=== PATIENT | female | born 1975 | race Caucasian/White ===

== ENCOUNTER 2022-04-02 08:07 | Emergency (ER) | payer OTHER, SELFPAY ==
--- NOTE | ~2022-04-02 | XR_ITS ---
XR chest 2V DATE: 04/02/2022 08:38 INDICATION: Shortness of breath for one week. Cough, congestion. TECHNIQUE: 2 views COMPARISON: None FINDINGS: Normal heart size. No hilar or mediastinal enlargement. No pulmonary infiltrate or consolid ation, pleural effusion or pulmonary vascular congestion or pneumothorax. IMPRESSION: Negative Reviewed, dictated and finalized at location [facility] [employer] IMPRESSION: Negative
--- NOTE | 2022-04-02 08:11 | ED.URI ---
HPI - URI/Sore Throat General Chief Complaint: Upper Respiratory Infection Stated Complaint: LOSS OF SMELL/EYES BURNING/EARACHE/CHEST HEAVY Time Seen by Provider: 04/02/22 08:09 Source: patient Mode of arrival: ambulatory Limitations: no limitations History of Present Illness HPI Narrative: Emiliana is a 46-year-old female patient presenting to the clinic today with complaints of loss of smell, eyes burning, earache, shortness of breath, and chest heaviness x6 days. She reports no known fever or chills. States that she feels as though she is only using 20% capacity of her lungs. Was very short of breath last night and she tried sitting in steam to see if this would help alleviate her symptoms. Has a nonproductive. Tested negative for COVID at the beginning of her illness. Reports symptoms are gradually getting worse. MD elicited complaint: cough, rhinorrhea, nasal congestion and other (Eyes burning, ear pain, loss of smell, chest heaviness) Related Data Allergies Allergy/AdvReac Type Severity Reaction Status Date / Time No Known Allergies Allergy Verified 04/02/22 08:24 Review of Systems Review of Systems: Pertinent positives per HPI. Patient denies any fever, rash, headache, visual changes, dizziness, chest pain, palpitations, nausea, vomiting, diarrhea, constipation, abdominal pain, or any urinary issues. PMFSH Comments At the time of my signature, I reviewed and agree with the nursing past medical, surgical, social, and family history. There is no relevant family history pertinent to the patient complaint. Exam Narrative: General: Well-developed, well nourished, in no apparent distress Head: Normocephalic, atraumatic Eyes: Pupils equally round and reactive to light bilaterally, EOM intact, sclera and conjunctive clear, no discharge, lids normal Ears: TMs intact and clear, ear canals clear, no drainage, grossly hearing normal. Nose: Nares patent, clear nasal discharge, no inflammation, no sinus tenderness. Mouth: Oral pharynx without lesions or masses, good dentition, MMM. Neck: Supple, trachea midline, no enlargement of anterior or posterior cervical nodes, no thyroid masses or goiter palpable. Cardio: Regular rate and rhythm, s1 and s2 normal, no murmur appreciated. Resp: Clear to auscultation bilaterally, no rhonchi, rales, wheezing or rubs Course Course Emergency Course: Portions of this record may have been created with voice recognition software. Level of Care: Express [facility] Visit Vital Signs Vital signs: Vital signs reviewed MDM - URI/Sore Throat MDM Narrative Medical decision making narrative: At the time of visit patient is resting comfortably on the exam table. COVID and influenza testing was negative in the clinic today. Chest x-ray was performed and was negative in the clinic today. I suspect patient has bronchitis/upper respiratory infection. Prescription for albuterol inhaler and prednisone was sent to pharmacy and supportive measures were discussed with the patient she voiced understanding of discharge instructions and agrees to treatment plan. Differential Diagnosis Differential diagnosis: Likely upper respiratory infection, otitis media, sinusitis, viral infection, bronchitis, influenza, pharyngitis and other (COVID) Imaging Data Radiologist's impression: [facility] [address] [place] [address] XRay Report Signed Patient: Emiliana Pleitez : 1975 MR#: [id number] Age/Sex: 46 / F Acct:[id number] Loc: [facility]? ? 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 Cough, congestion.? TECHNIQUE: 2 views? COMPARISON: None? FINDINGS: Normal hear
[2022-04-02 08:20] VITALS: BP 136/98; PULSE 76; RESP 18; TEMP 36.8; O2SAT 100
[2022-04-02 08:25] VITALS: BP 136/98; PULSE 76; RESP 18; TEMP 36.8; O2SAT 100
== END 2022-04-02 09:10 | disposition home or self-care (01) ==
PROVIDERS: Emergency Provider Nurse Practitioner Family
DX: J40 Bronchitis, not specified as acute or chronic (principal); J06.9 Acute upper respiratory infection, unspecified; Z20.822 Contact with and (suspected) exposure to COVID-19
CPT/HCPCS: 71046; 87426; 87804; 99213; C9803; G0463

== ENCOUNTER 2022-06-22 10:18 | Outpatient (CLI) | payer OTHER, SELFPAY ==
[2022-06-22 15:02] LABS: Kit Draw Collected
== END 2022-06-22 10:19 | disposition home or self-care (01) ==
LOC: ANHGOSHLAB 10:20
PROVIDERS: PCP Clinical Nurse Specialist; Visit Provider Clinical Nurse Specialist
DX: D64.9 Anemia, unspecified (principal); E55.9 Vitamin D deficiency, unspecified; R21 Rash and other nonspecific skin eruption; R23.2 Flushing; Z13.220 Encounter for screening for lipoid disorders; Z13.228 Encounter for screening for other metabolic disorders; Z78.9 Other specified health status
CPT/HCPCS: 36415

== ENCOUNTER 2022-07-28 10:34 | Outpatient (CLI) | payer OTHER, SELFPAY ==
[2022-08-01 12:03] LABS: ANA Cascade Screen Negative (Negative)
== END 2022-07-28 10:35 | disposition home or self-care (01) ==
LOC: ANHGOSHLAB 10:36
PROVIDERS: PCP Clinical Nurse Specialist; Visit Provider Clinical Nurse Specialist
DX: R76.8 Other specified abnormal immunological findings in serum (principal)
CPT/HCPCS: 36415; 86038

== ENCOUNTER 2022-10-20 03:50 | Inpatient (IN) | payer OTHER, SELFPAY ==
[2022-10-20] VITALS (16 sets, daily range): BP systolic 97–143; BP diastolic 54–94; PULSE 61–81; RESP 8–19; TEMP 36.1–36.5; O2SAT 90–100; BMI 25.6
--- NOTE | ~2022-10-20 | CT_ITS ---
CT of the Abdomen and Pelvis: Indication: Small bowel obstruction Technique: 2.5 mm axial scans were obtained through the abdomen and pelvis following intravenous adm inistration of 100 cc of Omnipaque 350. Dose reduction technique was used on this scan by utilizing a utomated exposure control and iterative reconstruction technique. The dose-length product (DLP) was 4 22.18 mGy-cm. Findings: Scans through the lung bases are unremarkable. The liver, spleen, pancreas, gallbladder, adrenals and kidneys are within normal limits. No evidence of aortic aneurysm. No lymphadenopathy. There is extensive, somewhat multifocal wall thickening of the distal ileum, with mild surrounding in flammatory change. There is upstream dilatation of small bowel loops from this region, compatible wit h small bowel obstruction. Large bowel is decompressed. No abscess or free air evident. Images through the pelvis were performed. Urinary bladder unremarkable. No significant adnexal mass e vident. Small amount of abdominopelvic ascites present. Impression: Extensive, somewhat multifocal wall thickening of the distal ileum with adjacent inflammatory change, and upstream small bowel obstruction. Constellation of findings raises suspicion for Crohn's diseas e. Correlate clinically. Small amount of abdominopelvic ascites. Reviewed, dictated and finalized at location . Impression: Extensive, somewhat multifocal wall thickening of the distal ileum with adjacen t inflammatory change, and upstream small bowel obstruction. Constellation of findings raises suspicion for Crohn's disease. Correlate clinically. Small amount of abdominopelvic ascites.
[2022-10-20] MEDS: ONDANSETRON INJ 4 MG/2 ML VIAL IV PUSH ×6 (04:36→22:41)
--- NOTE | 2022-10-20 04:45 | PC.NURSE ---
Pt c/c abd pain that is generalized. pt sts that she has a hx of SBO. pt sts pain began at 23:00 on 10/19/22. pt is and has been vomiting. pt denies fever,chills. Pt sts that she is having normal bowel movements. iv established and labs sent. pt placed on monitor. pt went to restroom
[2022-10-20 04:46] LABS: Basophils Absolute Auto 0.1 K/mm3 (0.0-0.1); Basophils Percent Auto 0.5 % (0.2-1.2); Eosinophils Percent Auto 0.2 % (0-4.4); Hematocrit 43.3 % (37.0-47.0); Immature Granulocyte Absolute 0.04 K/mm3 (0.00-0.031); Immature Granulocyte Percent A 0.4 % (0-0.5); Lymphocytes Absolute Auto 1.18 K/mm3 (0.9-3.2); Lymphocytes Percent Auto 10.8 % (18.3-44.2); Mean Corpuscular HGB Conc 32.3 g/dl (32-36); Mean Corpuscular Hemoglobin 31.6 pg (26-34); Mean Corpuscular Volume 97.7 fl (80-100); Mean Platelet Volume 9.8 fl (7.4-10.4); Monocytes Absolute Auto 0.6 K/mm3 (0.1-0.6); Monocytes Percent Auto 5.9 % (2.6-8.5); Neutrophils Percent Auto 82.2 % (45.5-73.1); Platelet Count Result 391 k/mm3 (150-375); Red Blood Count 4.43 M/mm3 (4.2-5.4); Red Cell Distribution Width 12.2 % (11.5-14.5); White Blood Count 10.9 K/mm3 (4.5-10.0)
[2022-10-20 04:59] LABS: Alanine Aminotransferase 29 U/L (6-35); Albumin Level 4.9 g/dL (3.5-5.1); Alkaline Phosphatase 69 U/L (38-126); Anion Gap 10 mmol/L (8-16); Aspartate Amino Transferase 30 U/L (14-36); Bilirubin,Total 0.6 mg/dL (0.2-1.3); Blood Urea Nitrogen 9 mg/dL (7-17); Calcium 9.8 mg/dL (8.4-10.2); Carbon Dioxide 22 mmol/L (22-30); Chloride 105 mmol/L (98-107); Estimated CRCL calculation 98 ml/min; Estimated Glomerular Filt Rate > 60; Glucose 125 mg/dL (65-110); Lipase 71 U/L (23-300); Potassium 4.3 mmol/L (3.4-5.0); Sodium 137 mmol/L (137-145)
[2022-10-20 05:00] LABS: Appearance Urine Clear (Clear); Bacteria Urine Rare /hpf; Bilirubin Urine Negative (Negative); Blood Urine Negative (Negative); Color Urine Yellow (Yellow); Glucose Urine UA Negative (Negative); Ketones Urine 1+ mg/dL (Negative); Leukocyte Esterase Ur Trace LEU/UL (Negative); Nitrate Urine Negative (Negative); Non Pathogenic Casts 0-2; Protein Urine Trace mg/dL (Negative); RBC Urine 0-2 /hpf (0-2); Specific Grav Ur 1.018 (1.001-1.035); Squamous Epithelial Cell Urine None seen /hpf (Few); Urobilinogen Urine 0.2 mg/dL (<2.0); WBC Urine 0-5 /hpf; pH Urine 5.5 (5.0-9.0)
--- NOTE | 2022-10-20 05:01 | ED.ABDPAIN ---
HPI - Abdominal Pain General Chief Complaint: Abdominal Pain Stated Complaint: abdominal pain, nauseated Time Seen by Provider: 10/20/22 04:43 Source: patient and RN notes reviewed Mode of arrival: ambulatory Limitations: no limitations History of Present Illness HPI narrative: This is a 47 year old female with history of Chrohns' disease who presents for evaluation abdominal pain. She states around 11 pm she developed diffuse abdominal pain that she describes as contractions. Her pain has gradually worsened. She is having nonbilious nausea and vomiting as well. Her last bowel movement was yesterday morning. She states this pain feels similar to episodes of small bowel obstruction that she had in the past due to her Chrohns. She reports 3 years ago she was told she no longer had chrohns so she not taking any medication. She is having cold and hot flashes. She denies any previous surgeries. Related Data Home Medications Medication Instructions Recorded Confirmed metronidazole 0.75 % topical gel 1 applic topical HS 10/20/22 10/20/22 Allergies Allergy/AdvReac Type Severity Reaction Status Date / Time No Known Allergies Allergy Verified 10/20/22 03:50 Review of Systems Review of Systems: All systems reviewed & are unremarkable except as noted in HPI and below PMFSH Past Medical History Medical History Abdominal pain delivery delivered 1993, 2002 Crohn's disease Nausea Family History Family History Other Cerebrovascular accident Lung cancer Ovarian cancer Social History Social History Smoking status: Never smoker Alcohol intake: current Alcohol use details: occasionally Substance use: never Lack of Transportation: No Lack of Food: Never True Current Housing: I Have Housing Concerned About Future Housing: No Difficulty Paying Gas/Electric Bills: No Difficulty Paying for Meds: No Currently Unemployed: No Education: Master's Degree or Higher Difficulty w/ Childcare or Family Care: No Living arrangements: with family 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s: No Exam Const: General: no acute distress and alert Nutritional Appearance: well nourished Orientation/consciousness: patient oriented x3 HENMT: Head: normal to inspection Mouth: Yes Normal oral and palatal mucosa present, Yes lip normal and Yes moist mucous membranes Eyes: EOM: EOMs intact bilaterally Neck: Neck: normal visual inspection Chest: Chest palpation & inspection: normal inspection of the chest Resp: Effort & Inspection: normal respiratory effort Auscultation: clear to auscultation bilaterally Cardio: Rate: regular rate Rhythm: regular rhythm Heart sounds: no murmurs GI: GI Palp: Yes Soft to palpation, Yes Tenderness to palpation present (GI) (diffuse), No Guarding due to palpation present (GI) and No Rigid due to palpation Auscultation: Hyperactive bowel sounds present Skin: General skin exam: normal color Rashes: no rashes Wounds: no wounds Neuro: General: patient oriented x3, moves all extremities and CN's II-XI intact bilaterally Extrem: General: normal to inspection Psych: Mental Status: mental status grossly normal Affect: normal affect Attitude: cooperative Course Reevaluation(s) Reevaluation #1: PAtient absolute refuses to have NG tube placed. She is aware of diagnosis and usual treatment. She agrees to admission Date: 10/20/22 Time: 06:40 Consultations Consultation #1: I Discussed case and CT findings with DR. jessica gant. HE agrees to consult and he request surgery consult. He denies hav
[2022-10-20] MEDS: SODIUM CHLORIDE 0.9% IV 1,000 ML 999 ML IV CONT (05:05)
[2022-10-20] MEDS: HYDROmorphone HCL INJ (*CRX) 1 MG/ML SYR IV PUSH ×5 (05:05→22:41)
[2022-10-20 05:12] LABS: Add Urine Microscopic? YES
--- NOTE | 2022-10-20 06:45 | PC.NURSE ---
pt refused NGx2.
[2022-10-20] MEDS: SODIUM CHLORIDE 0.9% IV 1,000 ML 125 ML IV CONT ×3 (07:21→19:33)
--- NOTE | 2022-10-20 10:36 | PM.IMHP ---
H&P: HPI History of Present Illness Date/Time: 10/20/22 10:36 Chief Complaint: Abdominal pain Narrative: 41 old female with a past medical history of Crohn's disease and colonoscopies who present to the ER with complaints of abdominal pain that started last night around 11:00 p.m.. Pain was sharp and located in the center of the abdomen. She also had nausea but no vomiting. No hematemesis, hematochezia. No fever chills at home but she had chills in the ER. CT abdomen suggested small-bowel obstruction and Crohn's disease flare-up. Patient had a colonoscopy 3 years back and was told that her Crohn's disease has resolved. Review of Systems Review of Systems: All systems reviewed & are unremarkable except as noted in HPI and below PMFSH Past Medical History Medical History delivery delivered 1993, 2002 Crohn's disease Family History Family History Other Cerebrovascular accident Lung cancer Ovarian cancer Social History Social History Smoking status: Never smoker Alcohol intake: current Alcohol use details: occasionally Substance use: never Lack of Transportation: No Lack of Food: Never True Current Housing: I Have Housing Concerned About Future Housing: No Difficulty Paying Gas/Electric Bills: No Difficulty Paying for Meds: No Currently Unemployed: No Education: Master's Degree or Higher Difficulty w/ Childcare or Family Care: No Living arrangements: with family 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s: No Meds Home Medications and Allergies Home Medications Medication Instructions Recorded Confirmed Type metronidazole 0.75 % topical gel 1 applic topical HS 10/20/22 10/20/22 History Allergies Allergy/AdvReac Type Severity Reaction Status Date / Time No Known Allergies Allergy Verified 10/20/22 03:50 Vital Signs Vital Signs - 24 hr 10/20/22 03:54 10/20/22 04:05 10/20/22 04:06 Temperature 97.7 F Pulse Rate 81 73 69 Respiratory Rate 16 17 10 L Blood Pressure 139/90 134/87 Pulse Oximetry 99 100 100 Oxygen Delivery Room Air 10/20/22 04:07 10/20/22 04:19 10/20/22 04:30 Temperature Pulse Rate 68 78 79 Respiratory Rate 12 8 L 12 Blood Pressure 139/87 Pulse Oximetry 100 Oxygen Delivery 10/20/22 04:31 10/20/22 04:49 10/20/22 05:00 Temperature Pulse Rate 77 70 66 Respiratory Rate 16 12 17 Blood Pressure 143/94 H Pulse Oximetry 100 100 Oxygen Delivery 10/20/22 05:01 10/20/22 05:27 10/20/22 05:30 Temperature Pulse Rate 64 80 61 Respiratory Rate 14 12 Blood Pressure 128/78 Pulse Oximetry 97 90 96 Oxygen Delivery 10/20/22 07:22 10/20/22 07:50 Temperature 97.5 F L Pulse Rate 68 77 Respiratory Rate 19 18 Blood Pressure 119/80 107/77 Pulse Oximetry 96 97 Oxygen Delivery Exam Const: General: cooperative Orientation/consciousness: patient oriented x3 HENMT: Head: normal to inspection Mouth: Yes Normal oral and palatal mucosa present Eyes: General: appearance normal, both eyes and all related structures Resp: Effort & Inspection: normal respiratory effort Auscultation: clear to auscultation bilaterally Cardio: Rate: regular rate Rhythm: regular rhythm Heart sounds: S1 normal heart sound present and S2 normal heart sound present GI: GI Palp: Yes Soft to palpation Auscultation: normal bowel sounds Skin: General skin exam: normal color and no rashes or lesions noted Neuro: General: patient oriented x3, no focal motor deficits and CN's II-XI intact bilaterally Speech: normal speech Extrem: General: f
--- NOTE | 2022-10-20 14:21 | WPDGICN ---
Assessment and Plan Assessment and plan (1) Small bowel obstruction: Code(s): K56.609 - Unspecified intestinal obstruction, unspecified as to partial versus complete obstruction Status: Acute Assessment and Plan: probably Crohn's flare iv steroids for now npo surgery will see patient will need to get SBFT when she feels better (2) Acute Crohn's disease with intestinal obstruction: Code(s): K50.912 - Crohn's disease, unspecified, with intestinal obstruction Status: Acute Assessment and Plan: crohns initially diagnosed about 10 years ago, she used remicade and humira at some point but years ago last colonoscopy about 3 years ago she is currently not taking any treatment will get tb and HBV status I explained that I strongly recommend use of biologics otherwise will get more complications, she prefers SQ route- probably we could start process of treatment as outpatient for either stelara or skiryzi. (3) Abdominal pain: Code(s): R10.9 - Unspecified abdominal pain Status: Acute (4) Nausea: Code(s): R11.0 - Nausea Status: Acute GI Consult Note Consult date/time: 10/20/22 14:21 Reason for consult: Crohn's HPI: Emiliana Pleitez is a 47 year old female who originally was diagnosed with Crohn's diasease in 2013 in [place], initially she was on remicade for over a year but did not like infusions then transitioned to humira, eventually after some time she decided to discontinue medications (she says that is not a fan of using medications intermediate), she had at least 3-4 colonoscopies since with last one 3 years ago and was told that did not have any more signs of Crohn's. She has not been taking any medications and says that has been doing fairly well since. Denies abdominal surgeries, she has normal bowel habits, no weight loss. Yesterday all the sudden with severe abdominal pain and nausea, then came to ER because persistent symptom. CT scan showed extensive, somewhat multifocal wall thickening of the distal ileum with adjacent inflammatory change, and upstream small bowel obstruction.? Constellation of findings raises suspicion for Crohn's disease. NPO now, still with pain but better, she is not passing gas. Review of Systems Constitutional: Constitutional: Denies chills Eyes: Eyes: Denies blurry vision ENT: Reports Normal hearing present Cardiovascular: Cardiovascular: Denies chest pain Respiratory: Respiratory: Denies cough Gastrointestinal: Gastrointestinal: Reports abdominal pain and Reports nausea Genitourinary: Genitourinary: Denies hematuria Musculoskeletal: Musculoskeletal: Denies arthralgias Integumentary/Breasts: Skin/Breast: Denies rash Neurologic: Denies confusion Psychiatric: Psychiatric: Denies behavioral changes [facility] Past Medical History Medical History (Updated 10/20/22 @ 14:25 by Aftab Soto MD) Abdominal pain delivery delivered 1993, 2002 Crohn's disease Nausea Family History Family History Other Cerebrovascular accident Lung cancer Ovarian cancer Social History Social History Smoking status: Never smoker Alcohol intake: current Alcohol use details: occasionally Substance use: never Lack of Transportation: No Lack of Food: Never True Current Housing: I Have Housing Concerned About Future Housing: No Difficulty Paying Gas/Electric Bills: No Difficulty Paying for Meds: No Currently Unemployed: No Education: Master's Degree or Higher Difficulty w/ Childcare or Family Care: No Living arrangements: with family 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
--- NOTE | 2022-10-20 15:54 | PM.CNGS ---
Assessment and Plan Assessment and plan (1) Small bowel obstruction: Code(s): K56.609 - Unspecified intestinal obstruction, unspecified as to partial versus complete obstruction Status: Acute Assessment and Plan: Likely secondary to Crohn's flare, management per Gastroenterology, continue serial exams for now, no acute surgical indications at this time, clear liquid diet History of Present Illness Consult details Consult date: 10/20/22 Reason for consult: abdominal pain Requesting physician: Osei Tineo MD Narrative: The patient is a 47-year-old female presenting to the emergency depart complaining of severe abdominal pain. The patient reports the pain was diffuse and crampy in nature. The patient reports associated nausea and vomiting. The patient has a history of Crohn's disease diagnosed in 2012 for which she was on medications. After a few years she reports her symptoms resolved and she stop the medications. The patient reports that she has had colonoscopy since that time and has had no signs or symptoms of residual disease. Review of Systems Review of Systems: All systems reviewed & are unremarkable except as noted in HPI and below PMFSH Past Medical History Medical History Abdominal pain delivery delivered 1993, 2002 Crohn's disease Nausea Family History Family History Other Cerebrovascular accident Lung cancer Ovarian cancer Social History Social History Smoking status: Never smoker Alcohol intake: current Alcohol use details: occasionally Substance use: never Lack of Transportation: No Lack of Food: Never True Current Housing: I Have Housing Concerned About Future Housing: No Difficulty Paying Gas/Electric Bills: No Difficulty Paying for Meds: No Currently Unemployed: No Education: Master's Degree or Higher Difficulty w/ Childcare or Family Care: No Living arrangements: with family 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s: No Meds Home Medications and Allergies Home Medications Medication Instructions Recorded Confirmed Type metronidazole 0.75 % topical gel 1 applic topical HS 10/20/22 10/20/22 History Allergies Allergy/AdvReac Type Severity Reaction Status Date / Time No Known Allergies Allergy Verified 10/20/22 03:50 Vital Signs Vital Signs - 24 hr 10/20/22 03:54 10/20/22 04:05 10/20/22 04:06 Temperature 36.5 C Pulse Rate 81 73 69 Respiratory Rate 16 17 10 L Blood Pressure 139/90 134/87 Pulse Oximetry 99 100 100 Oxygen Delivery Room Air 10/20/22 04:07 10/20/22 04:19 10/20/22 04:30 Temperature Pulse Rate 68 78 79 Respiratory Rate 12 8 L 12 Blood Pressure 139/87 Pulse Oximetry 100 Oxygen Delivery 10/20/22 04:31 10/20/22 04:49 10/20/22 05:00 Temperature Pulse Rate 77 70 66 Respiratory Rate 16 12 17 Blood Pressure 143/94 H Pulse Oximetry 100 100 Oxygen Delivery 10/20/22 05:01 10/20/22 05:27 10/20/22 05:30 Temperature Pulse Rate 64 80 61 Respiratory Rate 14 12 Blood Pressure 128/78 Pulse Oximetry 97 90 96 Oxygen Delivery 10/20/22 07:22 10/20/22 07:50 10/20/22 14:00 Temperature 36.4 C L 36.4 C L Pulse Rate 68 77 61 Respiratory Rate 19 18 16 Blood Pressure 119/80 107/77 97/54 L Pulse Oximetry 96 97 97 Oxygen Delivery Exam Const: General: cooperative, comfortable, no acute distress and average body habitus HENMT: Head: normal to inspection, normocephalic and atraumatic Eyes: General: appearance normal, both eyes and all related structures Neck: Neck: normal visu
[2022-10-20] MEDS: methylPREDNISolone SOD SUCC 40 MG VIAL IV PUSH (20:38)
[2022-10-21] MEDS: SODIUM CHLORIDE 0.9% IV 1,000 ML 125 ML IV CONT ×3 (03:23→20:43)
[2022-10-21 03:31] VITALS: BP 103/67; PULSE 60; RESP 18; TEMP 36; O2SAT 99
[2022-10-21 05:34] LABS: Basophils Percent Auto 0.2 % (0.2-1.2); Hematocrit 35.1 % (37.0-47.0); Hemoglobin 11.4 g/dL (12.0-15.0); Immature Granulocyte Absolute 0.02 K/mm3 (0.00-0.031); Immature Granulocyte Percent A 0.3 % (0-0.5); Lymphocytes Absolute Auto 0.87 K/mm3 (0.9-3.2); Mean Corpuscular HGB Conc 32.5 g/dl (32-36); Mean Corpuscular Hemoglobin 31.7 pg (26-34); Mean Corpuscular Volume 97.5 fl (80-100); Mean Platelet Volume 9.8 fl (7.4-10.4); Monocytes Absolute Auto 0.2 K/mm3 (0.1-0.6); Monocytes Percent Auto 4.1 % (2.6-8.5); Neutrophils Absolute Auto 4.7 K/mm3 (1.3-6.7); Neutrophils Percent Auto 80.4 % (45.5-73.1); Platelet Count Result 299 k/mm3 (150-375); White Blood Count 5.8 K/mm3 (4.5-10.0)
[2022-10-21] MEDS: methylPREDNISolone SOD SUCC 40 MG VIAL IV PUSH ×3 (05:43→20:48)
[2022-10-21 05:44] LABS: Alanine Aminotransferase 18 U/L (6-35); Albumin Level 3.2 g/dL (3.5-5.1); Alkaline Phosphatase 45 U/L (38-126); Anion Gap 5 mmol/L (8-16); Aspartate Amino Transferase 21 U/L (14-36); Bilirubin,Total 0.5 mg/dL (0.2-1.3); Blood Urea Nitrogen 6 mg/dL (7-17); CRP 5.3 mg/dL (<1.0); Calcium 7.8 mg/dL (8.4-10.2); Carbon Dioxide 22 mmol/L (22-30); Chloride 107 mmol/L (98-107); Estimated CRCL calculation 98 ml/min; Estimated Glomerular Filt Rate > 60; Glucose 122 mg/dL (65-110); Sodium 134 mmol/L (137-145)
[2022-10-21] MEDS: HYDROmorphone HCL INJ (*CRX) 1 MG/ML SYR IV PUSH ×4 (05:47→22:06)
[2022-10-21 06:13] LABS: Hepatitis B Surface Antigen Negative (Negative)
[2022-10-21 06:32] LABS: Erythrocyte Sedimentation Rate 21 mm/hr (0-20)
[2022-10-21 06:39] LABS: Hepatitis B Surface Anti Res Positive
[2022-10-21 08:00] VITALS: PULSE 60; RESP 18; O2SAT 99
--- NOTE | 2022-10-21 10:56 | PM.IMPN ---
Progress Note: A&P Assessment and Plan (1) Small bowel obstruction: Code(s): K56.609 - Unspecified intestinal obstruction, unspecified as to partial versus complete obstruction Status: Acute Assessment and Plan: Small-bowel obstruction etiology is unclear. keep the patient NPO. General surgery has been consulted. Continue IV fluids. Continue pain meds (2) Acute Crohn's disease with intestinal obstruction: Code(s): K50.912 - Crohn's disease, unspecified, with intestinal obstruction Status: Acute Assessment and Plan: Continue high-dose IV Solu-Medrol q.8 hours for Crohn's flare up. Continue IV pain medication. Continue symptomatic treatment. GI consulted. Keep NPO Plan Code full DVT prophylaxis-PAS boots/ambulation Subjective Date/time seen: 10/21/22 10:56 Interval history: Patient was started on clear liquid diet by General surgery but she is not tolerating. Recommended her to remain NPO Review of Systems Review of Systems: All systems reviewed & are unremarkable except as noted in HPI and below Exam Const: General: cooperative Orientation/consciousness: patient oriented x3 HENMT: Head: normal to inspection Mouth: Yes Normal oral and palatal mucosa present Eyes: General: appearance normal, both eyes and all related structures Resp: Effort & Inspection: normal respiratory effort Auscultation: clear to auscultation bilaterally Cardio: Rate: regular rate Rhythm: regular rhythm Heart sounds: S1 normal heart sound present and S2 normal heart sound present GI: GI Palp: Yes Soft to palpation Auscultation: normal bowel sounds Skin: General skin exam: normal color and no rashes or lesions noted Neuro: General: patient oriented x3, no focal motor deficits and CN's II-XI intact bilaterally Speech: normal speech Extrem: General: full ROM Psych: Appearance: grossly normal Objective Data Vital Signs Vital Signs: Vital Signs - 24 hr 10/20/22 14:00 10/20/22 20:10 10/21/22 03:31 Temperature 97.5 F L 96.9 F L 96.8 F L Pulse Rate 61 61 60 Respiratory Rate 16 18 18 Blood Pressure 97/54 L 102/64 103/67 Pulse Oximetry 97 99 99 Oxygen Delivery 10/21/22 08:00 Temperature Pulse Rate 60 Respiratory Rate 18 Blood Pressure Pulse Oximetry 99 Oxygen Delivery Room Air Intake/Output Intake/Output: Intake & Output 0810/19/22 10/20/22 10/21/22 23:59 23:59 23:59 23:59 Intake Total 3550 / 3550 1410 / 1410 Balance 3550 / 3550 1410 / 1410 Meds/Results Medications: Active Medications Generic Name Dose Route Start Last Admin Trade Name Freq PRN Reason Stop Dose Admin Hydromorphone HCl 1 mg 10/20/22 06:36 10/21/22 05:47 Hydromorphone Hcl Inj (*Crx) 1 Mg/Ml Syr IV PUSH 1 mg Q4H PRN Administration Pain Rated 7-10 Sodium Chloride 1,000 mls @ 125 mls/hr 10/20/22 06:40 10/21/22 03:23 Normal Saline Iv IV CONT 125 mls/hr .Q8H ANJU Administration Methylprednisolone Sodium Succinate 40 mg 10/20/22 22:00 10/21/22 05:43 Methylprednisolone Sod Succ 40 Mg Vial IV PUSH 40 mg Q8HR ANJU Administration Ondansetron HCl 4 mg 10/20/22 06:36 10/20/22 22:41 Ondansetron Inj 4 Mg/2 Ml Vial IV PUSH 4 mg Q4H PRN Administration Nausea Radiology Results: ITS Impressions Abdomen/Pelvis CT 10/20/22 06:05 Impression: Extensive, somewhat multifocal wall thickening of the distal ileum with adjacent inflammatory change, and upstream small bowel obstruction. Constellation of findings raises suspicion for Crohn's disease. Correlate clinically. Small amount of abdominopelvic ascites. Labs Labs: Laboratory Results - last 24 hr 10/21/22 05:01 WBC 5.8 RBC 3.60 L Hgb 11.4 L Hct 35.1 L MCV 97.5 MCH 31.7 MCHC 32.5 RDW 12.0 Plt Count 299 MPV 9.8 Immature Gran % (Auto) 0.3 Neut % (Auto) 80.4 H Lymph % (Auto) 15.0 L [place] % (Auto) 4.1 Eos % (Auto) 0.0 Baso % (Auto) 0.2 Ly
--- NOTE | 2022-10-21 13:21 | PM.PNGS ---
Progress Note: A&P Assessment and Plan (1) Acute Crohn's disease with intestinal obstruction: Code(s): K50.912 - Crohn's disease, unspecified, with intestinal obstruction Status: Acute Assessment and Plan: exam largely benign, nancie clears, would slowly ADAT, cont IV steroids Subjective Subjective Date/Time Seen: 10/21/22 13:21 Interval history: still c intermittent crampy abd pain, nancie clears Review of Systems Review of Systems: All systems reviewed & are unremarkable except as noted in HPI and below Exam Const: General: cooperative, comfortable and no acute distress Resp: Auscultation: clear to auscultation bilaterally Cardio: Rate: regular rate Rhythm: regular rhythm GI: Inspection: normal to inspection and non-distended GI Palp: Yes abdominal tenderness, Yes Soft to palpation, Yes Tenderness to palpation present (GI), No Guarding due to palpation present (GI) and No Rigid due to palpation Objective Data Vital Signs Vital Signs: Vital Signs - 24 hr 10/20/22 14:00 10/20/22 20:10 10/21/22 03:31 Temperature 36.4 C L 36.1 C L 36.0 C L Pulse Rate 61 61 60 Respiratory Rate 16 18 18 Blood Pressure 97/54 L 102/64 103/67 Pulse Oximetry 97 99 99 Oxygen Delivery 10/21/22 08:00 Temperature Pulse Rate 60 Respiratory Rate 18 Blood Pressure Pulse Oximetry 99 Oxygen Delivery Room Air Intake/Output Intake/Output: Intake & Output 10/18/22 10/19/22 10/20/22 10/21/22 23:59 23:59 23:59 23:59 Intake Total 3550 2410 Balance 3550 2410 Meds/Results Medications: Active Medications Generic Name Dose Route Start Last Admin Trade Name Freq PRN Reason Stop Dose Admin Hydromorphone HCl 1 mg 10/20/22 06:36 10/21/22 10:57 Hydromorphone Hcl Inj (*Crx) 1 Mg/Ml Syr IV PUSH 1 mg Q4H PRN Administration Pain Rated 7-10 Sodium Chloride 1,000 mls @ 125 mls/hr 10/20/22 06:40 10/21/22 11:42 Normal Saline Iv IV CONT 125 mls/hr .Q8H ANJU Administration Methylprednisolone Sodium Succinate 40 mg 10/20/22 22:00 10/21/22 05:43 Methylprednisolone Sod Succ 40 Mg Vial IV PUSH 40 mg Q8HR ANJU Administration Ondansetron HCl 4 mg 10/20/22 06:36 10/20/22 22:41 Ondansetron Inj 4 Mg/2 Ml Vial IV PUSH 4 mg Q4H PRN Administration Nausea Radiology Results: ITS Impressions Abdomen/Pelvis CT 10/20/22 06:05 Impression: Extensive, somewhat multifocal wall thickening of the distal ileum with adjacent inflammatory change, and upstream small bowel obstruction. Constellation of findings raises suspicion for Crohn's disease. Correlate clinically. Small amount of abdominopelvic ascites. Labs Labs: Laboratory Results - last 24 hr 10/21/22 05:01 WBC 5.8 RBC 3.60 L Hgb 11.4 L Hct 35.1 L MCV 97.5 MCH 31.7 MCHC 32.5 RDW 12.0 Plt Count 299 MPV 9.8 Immature Gran % (Auto) 0.3 Neut % (Auto) 80.4 H Lymph % (Auto) 15.0 L [place] % (Auto) 4.1 Eos % (Auto) 0.0 Baso % (Auto) 0.2 Lymph # (Auto) 0.87 L [place] # (Auto) 0.2 Eos # (Auto) 0.0 Baso # (Auto) 0.0 Abs Immat Gran (auto) 0.02 Absolute Neuts (auto) 4.7 Absolute Nucleated RBC 0.0 Nucleated RBC % 0.0 ESR 21 H Sodium 134 L Potassium 4.0 Chloride 107 Carbon Dioxide 22 Anion Gap 5 L BUN 6 L Creatinine 0.60 L Estim Creat Clear Calc 98 Estimated GFR > 60 Glucose 122 H Calcium 7.8 L Total Bilirubin 0.5 AST 21 ALT 18 Alkaline Phosphatase 45 C-Reactive Protein 5.3 H Total Protein 6.0 L Albumin 3.2 L Hep Bs Antigen Negative Hep Bs Antibody Positive
--- NOTE | 2022-10-21 13:22 | WPDGIPROGNO ---
Progress Note: A&P Assessment and Plan (1) Small bowel obstruction: Code(s): K56.609 - Unspecified intestinal obstruction, unspecified as to partial versus complete obstruction Status: Acute Assessment and Plan: still with abdominal pain liquid diet only if she can tolerate evaluated by surgery (2) Acute Crohn's disease with intestinal obstruction: Code(s): K50.912 - Crohn's disease, unspecified, with intestinal obstruction Status: Acute Assessment and Plan: noted elevated inflammatory markers iv steroids for now TB and HBV pending will need biologics for which needs to follow-up in office ([facility] or [facility]- prefers sq route), she used years ago remicade and humira (3) Abdominal pain: Code(s): R10.9 - Unspecified abdominal pain Status: Acute Assessment and Plan: monitor Subjective Date/time seen: 10/21/22 13:22 Interval history: still with abdominal discomfort, she has not had BM yet Review of Systems Review of Systems: All systems reviewed & are unremarkable except as noted in HPI and below Exam Const: General: cooperative, comfortable, no acute distress and average body habitus HENMT: Head: normal to inspection, normocephalic and atraumatic Eyes: General: appearance normal, both eyes and all related structures Neck: Neck: normal visual inspection, full ROM and no lymphadenopathy Resp: Effort & Inspection: normal respiratory effort Auscultation: clear to auscultation bilaterally Cardio: Rate: regular rate Rhythm: regular rhythm GI: Inspection: normal to inspection and distended GI Palp: Yes abdominal tenderness, Yes Soft to palpation, Yes Tenderness to palpation present (GI) and No Guarding due to palpation present (GI) Skin: General skin exam: normal color and no rashes or lesions noted Neuro: General: patient oriented x3 and CN's II-XI intact bilaterally Extrem: General: normal to inspection and full ROM Psych: Appearance: grossly normal Objective Data Vital Signs Vital Signs: Vital Signs - 24 hr 10/20/22 14:00 10/20/22 20:10 10/21/22 03:31 Temperature 97.5 F L 96.9 F L 96.8 F L Pulse Rate 61 61 60 Respiratory Rate 16 18 18 Blood Pressure 97/54 L 102/64 103/67 Pulse Oximetry 97 99 99 Oxygen Delivery 10/21/22 08:00 Temperature Pulse Rate 60 Respiratory Rate 18 Blood Pressure Pulse Oximetry 99 Oxygen Delivery Room Air Intake/Output Intake/Output: Intake & Output 10/18/22 10/19/22 10/20/22 10/21/22 23:59 23:59 23:59 23:59 Intake Total 3550 2410 Balance 3550 2410 Meds/Results Medications: Active Medications Generic Name Dose Route Start Last Admin Trade Name Freq PRN Reason Stop Dose Admin Hydromorphone HCl 1 mg 10/20/22 06:36 10/21/22 10:57 Hydromorphone Hcl Inj (*Crx) 1 Mg/Ml Syr IV PUSH 1 mg Q4H PRN Administration Pain Rated 7-10 Sodium Chloride 1,000 mls @ 125 mls/hr 10/20/22 06:40 10/21/22 11:42 Normal Saline Iv IV CONT 125 mls/hr .Q8H ANJU Administration Methylprednisolone Sodium Succinate 40 mg 10/20/22 22:00 10/21/22 05:43 Methylprednisolone Sod Succ 40 Mg Vial IV PUSH 40 mg Q8HR ANJU Administration Ondansetron HCl 4 mg 10/20/22 06:36 10/20/22 22:41 Ondansetron Inj 4 Mg/2 Ml Vial IV PUSH 4 mg Q4H PRN Administration Nausea Radiology Results: ITS Impressions Abdomen/Pelvis CT 10/20/22 06:05 Impression: Extensive, somewhat multifocal wall thickening of the distal ileum with adjacent inflammatory change, and upstream small bowel obstruction. Constellation of findings raises suspicion for Crohn's disease. Correlate clinically. Small amount of abdominopelvic ascites. Labs Labs: Laboratory Results - last 24 hr 10/21/22 05:01 WBC 5.8 RBC 3.60 L Hgb 11.4 L Hct 35.1 L MCV 97.5 MCH 31.7 MCHC 32.5 RDW 12.0 Plt Count 299 MPV 9.8 Immature Gran % (Auto) 0.3 Neut % (Auto) 80.4 H Lymph % (Aut
[2022-10-21 14:00] VITALS: BP 104/58; PULSE 67; RESP 16; TEMP 36.6; O2SAT 100
[2022-10-21 19:48] VITALS: BP 112/66; PULSE 63; RESP 14; TEMP 36.7; O2SAT 100
[2022-10-22] MEDS: SODIUM CHLORIDE 0.9% IV 1,000 ML 125 ML IV CONT ×3 (04:43→20:43)
[2022-10-22] MEDS: methylPREDNISolone SOD SUCC 40 MG VIAL IV PUSH ×3 (05:58→20:44)
[2022-10-22] MEDS: HYDROmorphone HCL INJ (*CRX) 1 MG/ML SYR IV PUSH ×4 (05:58→20:44)
[2022-10-22 06:04] VITALS: BP 113/68; PULSE 61; RESP 14; TEMP 36.6; O2SAT 98
--- NOTE | 2022-10-22 08:07 | PM.IMPN ---
Progress Note: A&P Assessment and Plan (1) Small bowel obstruction: Code(s): K56.609 - Unspecified intestinal obstruction, unspecified as to partial versus complete obstruction Status: Acute Assessment and Plan: Stable, improving, ADAT, appreciate general surgery consultation (2) Acute Crohn's disease with intestinal obstruction: Code(s): K50.912 - Crohn's disease, unspecified, with intestinal obstruction Status: Acute Assessment and Plan: Continue steroids, ADAT, improving, appreciate GI consultation, evaluate for biologics at discharge Plan DVT prophylaxis with lovenox GI prophylaxis not indicated Code status full code Subjective Date/time seen: 10/22/22 08:07 Interval history: 47-year-old female history of Crohn's disease presenting with abdominal pain and currently being treated for small-bowel obstruction and Crohn's flare. No overnight events noted. No chest pain or shortness of breath. No nausea, vomiting or diarrhea. No fevers or chills. Still with some abdominal TTP, no BM, no flatus. Doing ok with liquid diet. Review of Systems Review of Systems: 12 point review of systems was assessed and was negative except as noted in the HPI Exam Narrative: General: No acute distress, alert and oriented per baseline HEENT: Atraumatic, normocephalic, mucous membranes moist CV: Regular rate and rhythm, S1, S2 Lungs: Clear to auscultation bilaterally, no rales or crackles noted, no wheezes, good air entry Abdomen: Soft, nontender, nondistended, TTP, hypoactive BS, present Extremities: Normal to inspection Skin: No rashes noted, no lesions or wounds seen Psych: Euthymic, normal affect Objective Data Vital Signs Vital Signs: Vital Signs - 24 hr 10/21/22 14:00 10/21/22 19:48 10/22/22 06:04 Temperature 97.9 F 98.1 F 97.8 F Pulse Rate 67 63 61 Respiratory Rate 16 14 14 Blood Pressure 104/58 L 112/66 113/68 Pulse Oximetry 100 100 98 Intake/Output Intake/Output: Intake & Output 10/19/22 10/20/22 10/21/22 10/22/22 23:59 23:59 23:59 23:59 Intake Total 3550 4360 1450 Balance 3550 4360 1450 Meds/Results Medications: Active Medications Generic Name Dose Route Start Last Admin Trade Name Freq PRN Reason Stop Dose Admin Hydromorphone HCl 1 mg 10/20/22 06:36 10/22/22 05:58 Hydromorphone Hcl Inj (*Crx) 1 Mg/Ml Syr IV PUSH 1 mg Q4H PRN Administration Pain Rated 7-10 Sodium Chloride 1,000 mls @ 125 mls/hr 10/20/22 06:40 10/22/22 04:43 Normal Saline Iv IV CONT 125 mls/hr .Q8H ANJU Administration Methylprednisolone Sodium Succinate 40 mg 10/20/22 22:00 10/22/22 05:58 Methylprednisolone Sod Succ 40 Mg Vial IV PUSH 40 mg Q8HR ANJU Administration Ondansetron HCl 4 mg 10/20/22 06:36 10/20/22 22:41 Ondansetron Inj 4 Mg/2 Ml Vial IV PUSH 4 mg Q4H PRN Administration Nausea Radiology Results: ITS Impressions Abdomen/Pelvis CT 10/20/22 06:05 Impression: Extensive, somewhat multifocal wall thickening of the distal ileum with adjacent inflammatory change, and upstream small bowel obstruction. Constellation of findings raises suspicion for Crohn's disease. Correlate clinically. Small amount of abdominopelvic ascites.
[2022-10-22 09:35] LABS: Alanine Aminotransferase 17 U/L (6-35); Albumin Level 3.6 g/dL (3.5-5.1); Alkaline Phosphatase 46 U/L (38-126); Anion Gap 5 mmol/L (8-16); Aspartate Amino Transferase 27 U/L (14-36); Bilirubin,Total 0.5 mg/dL (0.2-1.3); Blood Urea Nitrogen 6 mg/dL (7-17); Calcium 8.6 mg/dL (8.4-10.2); Carbon Dioxide 24 mmol/L (22-30); Chloride 105 mmol/L (98-107); Estimated CRCL calculation 116 ml/min; Estimated Glomerular Filt Rate > 60; Glucose 112 mg/dL (65-110); Potassium 4.1 mmol/L (3.4-5.0); Sodium 134 mmol/L (137-145)
[2022-10-22 09:49] LABS: Basophils Percent Auto 0.1 % (0.2-1.2); Hematocrit 35.2 % (37.0-47.0); Hemoglobin 11.4 g/dL (12.0-15.0); Immature Granulocyte Absolute 0.04 K/mm3 (0.00-0.031); Immature Granulocyte Percent A 0.5 % (0-0.5); Lymphocytes Absolute Auto 1.15 K/mm3 (0.9-3.2); Lymphocytes Percent Auto 15.5 % (18.3-44.2); Mean Corpuscular HGB Conc 32.4 g/dl (32-36); Mean Corpuscular Hemoglobin 31.8 pg (26-34); Mean Corpuscular Volume 98.1 fl (80-100); Monocytes Absolute Auto 0.4 K/mm3 (0.1-0.6); Monocytes Percent Auto 5.1 % (2.6-8.5); Neutrophils Absolute Auto 5.9 K/mm3 (1.3-6.7); Neutrophils Percent Auto 78.8 % (45.5-73.1); Platelet Count Result 327 k/mm3 (150-375); Red Blood Count 3.59 M/mm3 (4.2-5.4); Red Cell Distribution Width 12.1 % (11.5-14.5); White Blood Count 7.4 K/mm3 (4.5-10.0)
[2022-10-22] MEDS: ENOXAPARIN 40 MG/0.4 ML SYRINGE SUB-Q (10:27)
--- NOTE | 2022-10-22 12:37 | PM.PNGS ---
Progress Note: A&P Assessment and Plan (1) Acute Crohn's disease with intestinal obstruction: Code(s): K50.912 - Crohn's disease, unspecified, with intestinal obstruction Status: Acute Assessment and Plan: improving, cont IV steroids, exam largely benign, will ADAT Subjective Subjective Date/Time Seen: 10/22/22 12:37 Interval history: feels better, less cramping, +flatus, nancie clears Review of Systems Review of Systems: All systems reviewed & are unremarkable except as noted in HPI and below Exam Const: General: cooperative, comfortable and no acute distress Resp: Auscultation: clear to auscultation bilaterally Cardio: Rate: regular rate Rhythm: regular rhythm GI: Inspection: normal to inspection and distended GI Palp: Yes abdominal tenderness, Yes Soft to palpation, Yes Tenderness to palpation present (GI), No Guarding due to palpation present (GI) and No Rigid due to palpation Objective Data Vital Signs Vital Signs: Vital Signs - 24 hr 10/21/22 14:00 10/21/22 19:48 10/22/22 06:04 Temperature 36.6 C 36.7 C 36.6 C Pulse Rate 67 63 61 Respiratory Rate 16 14 14 Blood Pressure 104/58 L 112/66 113/68 Pulse Oximetry 100 100 98 Intake/Output Intake/Output: Intake & Output 10/19/22 10/20/22 10/21/22 10/22/22 23:59 23:59 23:59 23:59 Intake Total 3550 4360 1670 Balance 3550 4360 1670 Meds/Results Medications: Active Medications Generic Name Dose Route Start Last Admin Trade Name Freq PRN Reason Stop Dose Admin Enoxaparin Sodium 40 mg 10/22/22 10:20 10/22/22 10:27 Enoxaparin 40 Mg/0.4 Ml Syringe SUB-Q 40 mg DAILY ANJU Administration Hydromorphone HCl 1 mg 10/20/22 06:36 10/22/22 10:27 Hydromorphone Hcl Inj (*Crx) 1 Mg/Ml Syr IV PUSH 1 mg Q4H PRN Administration Pain Rated 7-10 Sodium Chloride 1,000 mls @ 125 mls/hr 10/20/22 06:40 10/22/22 04:43 Normal Saline Iv IV CONT 125 mls/hr .Q8H ANJU Administration Methylprednisolone Sodium Succinate 40 mg 10/20/22 22:00 10/22/22 05:58 Methylprednisolone Sod Succ 40 Mg Vial IV PUSH 40 mg Q8HR ANJU Administration Ondansetron HCl 4 mg 10/20/22 06:36 10/20/22 22:41 Ondansetron Inj 4 Mg/2 Ml Vial IV PUSH 4 mg Q4H PRN Administration Nausea Radiology Results: ITS Impressions Abdomen/Pelvis CT 10/20/22 06:05 Impression: Extensive, somewhat multifocal wall thickening of the distal ileum with adjacent inflammatory change, and upstream small bowel obstruction. Constellation of findings raises suspicion for Crohn's disease. Correlate clinically. Small amount of abdominopelvic ascites. Labs Labs: Laboratory Results - last 24 hr 10/22/22 08:56 WBC 7.4 RBC 3.59 L Hgb 11.4 L Hct 35.2 L MCV 98.1 MCH 31.8 MCHC 32.4 RDW 12.1 Plt Count 327 MPV 10.0 Immature Gran % (Auto) 0.5 Neut % (Auto) 78.8 H Lymph % (Auto) 15.5 L [place] % (Auto) 5.1 Eos % (Auto) 0.0 Baso % (Auto) 0.1 L Lymph # (Auto) 1.15 [place] # (Auto) 0.4 Eos # (Auto) 0.0 Baso # (Auto) 0.0 Abs Immat Gran (auto) 0.04 H Absolute Neuts (auto) 5.9 Absolute Nucleated RBC 0.0 Nucleated RBC % 0.0 Sodium 134 L Potassium 4.1 Chloride 105 Carbon Dioxide 24 Anion Gap 5 L BUN 6 L Creatinine 0.50 L Estim Creat Clear Calc 116 Estimated GFR > 60 Glucose 112 H Calcium 8.6 Total Bilirubin 0.5 AST 27 ALT 17 Alkaline Phosphatase 46 Total Protein 7.0 Albumin 3.6
[2022-10-22 14:00] VITALS: BP 115/65; PULSE 54; RESP 16; TEMP 36.6; O2SAT 100
--- NOTE | 2022-10-22 15:02 | WPDGIPROGNO ---
Progress Note: A&P Assessment and Plan (1) Small bowel obstruction: Code(s): K56.609 - Unspecified intestinal obstruction, unspecified as to partial versus complete obstruction Status: Acute Assessment and Plan: improving iv steroids advance diet as tolerated will need biologics- she can follow-up in office and we talk about it (2) Acute Crohn's disease with intestinal obstruction: Code(s): K50.912 - Crohn's disease, unspecified, with intestinal obstruction Status: Acute Assessment and Plan: also elevated inflammatory markers iv steroids for now TB and HBV status pending will need biologics for which needs to follow-up in office ([facility] or [facility]- prefers sq route), she used years ago remicade and humira (3) Abdominal pain: Code(s): R10.9 - Unspecified abdominal pain Status: Acute Assessment and Plan: improving Subjective Date/time seen: 10/22/22 15:02 Interval history: better, still pain but improving, + flatus but still no bm tolerated liquid diet yesterday Review of Systems Review of Systems: All systems reviewed & are unremarkable except as noted in HPI and below Exam Const: General: comfortable and no acute distress HENMT: Face/Nose/Sinus: Normal nares present Eyes: General: appearance normal, both eyes and all related structures Neck: Neck: supple Resp: Auscultation: clear to auscultation bilaterally Cardio: Rate: regular rate Rhythm: regular rhythm GI: Inspection: non-distended GI Palp: Yes Soft to palpation and No Guarding due to palpation present (GI) Auscultation: normal bowel sounds Skin: General skin exam: normal color Neuro: Speech: normal speech Motor exam (neuro): 5/5 motor strength present throughout Extrem: General: normal to inspection Psych: Mental Status: mental status grossly normal Objective Data Vital Signs Vital Signs: Vital Signs - 24 hr 10/21/22 19:48 10/22/22 06:04 10/22/22 14:00 Temperature 98.1 F 97.8 F 97.8 F Pulse Rate 63 61 54 L Respiratory Rate 14 14 16 Blood Pressure 112/66 113/68 115/65 Pulse Oximetry 100 98 100 Intake/Output Intake/Output: Intake & Output 10/19/22 10/20/22 10/21/22 10/22/22 23:59 23:59 23:59 23:59 Intake Total 3550 4360 2670 Balance 3550 4360 2670 Meds/Results Medications: Active Medications Generic Name Dose Route Start Last Admin Trade Name [place] PRN Reason Stop Dose Admin Enoxaparin Sodium 40 mg 10/22/22 10:20 10/22/22 10:27 Enoxaparin 40 Mg/0.4 Ml Syringe SUB-Q 40 mg DAILY ANJU Administration Hydromorphone HCl 1 mg 10/20/22 06:36 10/22/22 10:27 Hydromorphone Hcl Inj (*Crx) 1 Mg/Ml Syr IV PUSH 1 mg Q4H PRN Administration Pain Rated 7-10 Sodium Chloride 1,000 mls @ 125 mls/hr 10/20/22 06:40 10/22/22 12:47 Normal Saline Iv IV CONT 125 mls/hr .Q8H ANJU Administration Methylprednisolone Sodium Succinate 40 mg 10/20/22 22:00 10/22/22 13:59 Methylprednisolone Sod Succ 40 Mg Vial IV PUSH 40 mg Q8HR ANJU Administration Ondansetron HCl 4 mg 10/20/22 06:36 10/20/22 22:41 Ondansetron Inj 4 Mg/2 Ml Vial IV PUSH 4 mg Q4H PRN Administration Nausea Radiology Results: ITS Impressions Abdomen/Pelvis CT 10/20/22 06:05 Impression: Extensive, somewhat multifocal wall thickening of the distal ileum with adjacent inflammatory change, and upstream small bowel obstruction. Constellation of findings raises suspicion for Crohn's disease. Correlate clinically. Small amount of abdominopelvic ascites. Labs Labs: Laboratory Results - last 24 hr 10/22/22 08:56 WBC 7.4 RBC 3.59 L Hgb 11.4 L Hct 35.2 L MCV 98.1 MCH 31.8 MCHC 32.4 RDW 12.1 Plt Count 327 MPV 10.0 Immature Gran % (Auto) 0.5 Neut % (Auto) 78.8 H Lymph % (Auto) 15.5 L [place] % (Auto) 5.1 Eos % (Auto) 0.0 Baso % (Auto) 0.1 L Lymph # (Auto) 1.15 [place] # (Auto) 0.4 Eos # (Auto) 0.0 Baso # (Aut
--- NOTE | 2022-10-22 17:22 | PC.NURSE ---
On 10/22/22, the [employer] pending nurse, Azalea German, provided care and completed [employer] documentation on this patient. I have reviewed the nurse's documentation and agree with the findings.
[2022-10-22 21:33] VITALS: BP 121/74; PULSE 87; RESP 16; TEMP 36.6; O2SAT 97
[2022-10-23] MEDS: SODIUM CHLORIDE 0.9% IV 1,000 ML 125 ML IV CONT (04:47)
[2022-10-23 05:05] VITALS: BP 117/63; PULSE 55; RESP 16; TEMP 36.8; O2SAT 99
[2022-10-23] MEDS: methylPREDNISolone SOD SUCC 40 MG VIAL IV PUSH (05:25)
[2022-10-23 05:34] LABS: Potassium 3.7 mmol/L (3.4-5.0)
[2022-10-23 05:36] LABS: Alanine Aminotransferase 16 U/L (6-35); Alkaline Phosphatase 38 U/L (38-126); Anion Gap 2 mmol/L (8-16); Aspartate Amino Transferase 20 U/L (14-36); Bilirubin,Total 0.3 mg/dL (0.2-1.3); Blood Urea Nitrogen 6 mg/dL (7-17); Carbon Dioxide 25 mmol/L (22-30); Chloride 106 mmol/L (98-107); Estimated CRCL calculation 116 ml/min; Estimated Glomerular Filt Rate > 60; Glucose 115 mg/dL (65-110); Sodium 133 mmol/L (137-145)
[2022-10-23 06:13] LABS: Basophils Percent Auto 0.1 % (0.2-1.2); Hematocrit 31.3 % (37.0-47.0); Hemoglobin 10.3 g/dL (12.0-15.0); Immature Granulocyte Absolute 0.03 K/mm3 (0.00-0.031); Immature Granulocyte Percent A 0.4 % (0-0.5); Lymphocytes Absolute Auto 1.81 K/mm3 (0.9-3.2); Lymphocytes Percent Auto 23.6 % (18.3-44.2); Mean Corpuscular HGB Conc 32.9 g/dl (32-36); Mean Corpuscular Hemoglobin 31.8 pg (26-34); Mean Corpuscular Volume 96.6 fl (80-100); Mean Platelet Volume 10.2 fl (7.4-10.4); Monocytes Absolute Auto 0.5 K/mm3 (0.1-0.6); Monocytes Percent Auto 6.9 % (2.6-8.5); Neutrophils Absolute Auto 5.3 K/mm3 (1.3-6.7); Platelet Count Result 309 k/mm3 (150-375); Red Blood Count 3.24 M/mm3 (4.2-5.4); White Blood Count 7.7 K/mm3 (4.5-10.0)
[2022-10-23] MEDS: HYDROmorphone HCL INJ (*CRX) 1 MG/ML SYR IV PUSH ×2 (06:20→12:15)
[2022-10-23 08:00] VITALS: PULSE 55; RESP 16; O2SAT 99
--- NOTE | 2022-10-23 09:09 | PM.IMPN ---
Progress Note: A&P Assessment and Plan (1) Small bowel obstruction: Code(s): K56.609 - Unspecified intestinal obstruction, unspecified as to partial versus complete obstruction Status: Acute Assessment and Plan: Stable, improving, ADAT, appreciate general surgery consultation (2) Acute Crohn's disease with intestinal obstruction: Code(s): K50.912 - Crohn's disease, unspecified, with intestinal obstruction Status: Acute Assessment and Plan: Continue steroids, ADAT, improving, appreciate GI consultation, evaluate for biologics at discharge Plan DVT prophylaxis with lovenox GI prophylaxis not indicated Code status full code Subjective Date/time seen: 10/23/22 09:09 Interval history: 47-year-old female history of Crohn's disease presenting with abdominal pain and currently being treated for small-bowel obstruction and Crohn's flare. No overnight events noted. No chest pain or shortness of breath. No nausea, vomiting or diarrhea. No fevers or chills. Still with some abdominal TTP, no BM, no flatus. Doing ok with liquid diet. Review of Systems Review of Systems: 12 point review of systems was assessed and was negative except as noted in the HPI Exam Narrative: General: No acute distress, alert and oriented per baseline HEENT: Atraumatic, normocephalic, mucous membranes moist CV: Regular rate and rhythm, S1, S2 Lungs: Clear to auscultation bilaterally, no rales or crackles noted, no wheezes, good air entry Abdomen: Soft, nontender, nondistended, TTP, hypoactive BS, present Extremities: Normal to inspection Skin: No rashes noted, no lesions or wounds seen Psych: Euthymic, normal affect Objective Data Vital Signs Vital Signs: Vital Signs - 24 hr 10/22/22 14:00 10/22/22 21:33 10/23/22 05:05 Temperature 97.8 F 97.9 F 98.3 F Pulse Rate 54 L 87 55 L Respiratory Rate 16 16 16 Blood Pressure 115/65 121/74 117/63 Pulse Oximetry 100 97 99 Intake/Output Intake/Output: Intake & Output 10/20/22 10/21/22 10/22/22 10/23/22 23:59 23:59 23:59 23:59 Intake Total 3550 1114 4874 6902 Balance 3550 4360 1289 5663 Meds/Results Medications: Active Medications Generic Name Dose Route Start Last Admin Trade Name Freq PRN Reason Stop Dose Admin Enoxaparin Sodium 40 mg 10/22/22 10:20 10/22/22 10:27 Enoxaparin 40 Mg/0.4 Ml Syringe SUB-Q 40 mg DAILY ANJU Administration Hydromorphone HCl 1 mg 10/20/22 06:36 10/23/22 06:20 Hydromorphone Hcl Inj (*Crx) 1 Mg/Ml Syr IV PUSH 1 mg Q4H PRN Administration Pain Rated 7-10 Sodium Chloride 1,000 mls @ 125 mls/hr 10/20/22 06:40 10/23/22 04:47 Normal Saline Iv IV CONT 125 mls/hr .Q8H ANJU Administration Methylprednisolone Sodium Succinate 40 mg 10/20/22 22:00 10/23/22 05:25 Methylprednisolone Sod Succ 40 Mg Vial IV PUSH 40 mg Q8HR ANJU Administration Ondansetron HCl 4 mg 10/20/22 06:36 10/20/22 22:41 Ondansetron Inj 4 Mg/2 Ml Vial IV PUSH 4 mg Q4H PRN Administration Nausea Radiology Results: ITS Impressions Abdomen/Pelvis CT 10/20/22 06:05 Impression: Extensive, somewhat multifocal wall thickening of the distal ileum with adjacent inflammatory change, and upstream small bowel obstruction. Constellation of findings raises suspicion for Crohn's disease. Correlate clinically. Small amount of abdominopelvic ascites. Labs Labs: Laboratory Results - last 24 hr 10/22/22 10/23/22 08:56 04:50 WBC 7.4 7.7 RBC 3.59 L 3.24 L Hgb 11.4 L 10.3 L Hct 35.2 L 31.3 L MCV 98.1 96.6 MCH 31.8 31.8 MCHC 32.4 32.9 RDW 12.1 12.0 Plt Count 327 309 MPV 10.0 10.2 Immature Gran % (Auto) 0.5 0.4 Neut % (Auto) 78.8 H 69.0 Lymph % (Auto) 15.5 L 23.6 [place] % (Auto) 5.1 6.9 Eos % (Auto) 0.0 0.0 Baso % (Auto) 0.1 L 0.1 L Lymph # (Auto) 1.15 1.81 [place] # (Auto) 0.4 0.5 Eos # (Auto) 0.0 0.0 Baso # (Auto)
--- NOTE | 2022-10-23 12:04 | PM.PNGS ---
Progress Note: A&P Assessment and Plan (1) Acute Crohn's disease with intestinal obstruction: Code(s): K50.912 - Crohn's disease, unspecified, with intestinal obstruction Status: Acute Assessment and Plan: resolving, cont steroids per GI, nancie diet, exam benign, no acute surgical issues at this time Subjective Subjective Date/Time Seen: 10/23/22 12:04 Interval history: cont to feel better each day, pain improved, nancie diet, +flatus, no BM Review of Systems Review of Systems: All systems reviewed & are unremarkable except as noted in HPI and below Exam Const: General: cooperative, comfortable and no acute distress Resp: Auscultation: clear to auscultation bilaterally Cardio: Rate: regular rate Rhythm: regular rhythm GI: Inspection: normal to inspection and distended GI Palp: No abdominal tenderness, Yes Soft to palpation, No Tenderness to palpation present (GI), No Guarding due to palpation present (GI) and No Rigid due to palpation Objective Data Vital Signs Vital Signs: Vital Signs - 24 hr 10/22/22 14:00 10/22/22 21:33 10/23/22 05:05 Temperature 36.6 C 36.6 C 36.8 C Pulse Rate 54 L 87 55 L Respiratory Rate 16 16 16 Blood Pressure 115/65 121/74 117/63 Pulse Oximetry 100 97 99 Oxygen Delivery 10/23/22 08:00 Temperature Pulse Rate 55 L Respiratory Rate 16 Blood Pressure Pulse Oximetry 99 Oxygen Delivery Room Air Intake/Output Intake/Output: Intake & Output 10/20/22 10/21/22 10/22/22 10/23/22 23:59 23:59 23:59 23:59 Intake Total 3550 4360 4770 2190 Balance 3550 4360 4770 2190 Meds/Results Medications: Active Medications Generic Name Dose Route Start Last Admin Trade Name Freq PRN Reason Stop Dose Admin Enoxaparin Sodium 40 mg 10/22/22 10:20 10/22/22 10:27 Enoxaparin 40 Mg/0.4 Ml Syringe SUB-Q 40 mg DAILY ANJU Administration Hydromorphone HCl 1 mg 10/20/22 06:36 10/23/22 06:20 Hydromorphone Hcl Inj (*Crx) 1 Mg/Ml Syr IV PUSH 1 mg Q4H PRN Administration Pain Rated 7-10 Sodium Chloride 1,000 mls @ 125 mls/hr 10/20/22 06:40 10/23/22 04:47 Normal Saline Iv IV CONT 125 mls/hr .Q8H ANJU Administration Methylprednisolone Sodium Succinate 40 mg 10/20/22 22:00 10/23/22 05:25 Methylprednisolone Sod Succ 40 Mg Vial IV PUSH 40 mg Q8HR ANJU Administration Ondansetron HCl 4 mg 10/20/22 06:36 10/20/22 22:41 Ondansetron Inj 4 Mg/2 Ml Vial IV PUSH 4 mg Q4H PRN Administration Nausea Radiology Results: ITS Impressions Abdomen/Pelvis CT 10/20/22 06:05 Impression: Extensive, somewhat multifocal wall thickening of the distal ileum with adjacent inflammatory change, and upstream small bowel obstruction. Constellation of findings raises suspicion for Crohn's disease. Correlate clinically. Small amount of abdominopelvic ascites. Labs Labs: Laboratory Results - last 24 hr 10/23/22 04:50 WBC 7.7 RBC 3.24 L Hgb 10.3 L Hct 31.3 L MCV 96.6 MCH 31.8 MCHC 32.9 RDW 12.0 Plt Count 309 MPV 10.2 Immature Gran % (Auto) 0.4 Neut % (Auto) 69.0 Lymph % (Auto) 23.6 [place] % (Auto) 6.9 Eos % (Auto) 0.0 Baso % (Auto) 0.1 L Lymph # (Auto) 1.81 [place] # (Auto) 0.5 Eos # (Auto) 0.0 Baso # (Auto) 0.0 Abs Immat Gran (auto) 0.03 Absolute Neuts (auto) 5.3 Absolute Nucleated RBC 0.0 Nucleated RBC % 0.0 Sodium 133 L Potassium 3.7 Chloride 106 Carbon Dioxide 25 Anion Gap 2 L BUN 6 L Creatinine 0.50 L Estim Creat Clear Calc 116 Estimated GFR > 60 Glucose 115 H Calcium 8.0 L Total Bilirubin 0.3 AST 20 ALT 16 Alkaline Phosphatase 38 Total Protein 6.0 L Albumin 3.0 L
[2022-10-23 13:34] LABS: NIL 0.01 IU/mL; Quantiferon TB Plus, 1T NEGATIVE (NEGATIVE)
--- NOTE | 2022-10-23 13:43 | WPDGIPROGNO ---
Progress Note: A&P Assessment and Plan (1) Small bowel obstruction: Code(s): K56.609 - Unspecified intestinal obstruction, unspecified as to partial versus complete obstruction Status: Acute Assessment and Plan: resolved iv steroids for now- she can go home with slow steroid taper (prednisone 40 mg daily then reduce 5 mg each week), then she can follow-up office and we can discuss biologics (she used in the past remicade and humira), she prefers SQ injection so probably stelara or skyrizi could be an option (2) Acute Crohn's disease with intestinal obstruction: Code(s): K50.912 - Crohn's disease, unspecified, with intestinal obstruction Status: Acute Assessment and Plan: TB and HBV status pending will need biologics for which needs to follow-up in office (3) Abdominal pain: Code(s): R10.9 - Unspecified abdominal pain Status: Acute Assessment and Plan: comfortable and much better Subjective Date/time seen: 10/23/22 13:43 Interval history: feeling much better, tolerating diet and she feels like going home later today Review of Systems Review of Systems: All systems reviewed & are unremarkable except as noted in HPI and below Exam Const: General: comfortable and no acute distress HENMT: Face/Nose/Sinus: Normal nares present Eyes: General: appearance normal, both eyes and all related structures Neck: Neck: supple Resp: Auscultation: clear to auscultation bilaterally Cardio: Rate: regular rate Rhythm: regular rhythm GI: Inspection: non-distended GI Palp: Yes Soft to palpation and No Guarding due to palpation present (GI) Auscultation: normal bowel sounds Skin: General skin exam: normal color Neuro: Speech: normal speech Motor exam (neuro): 5/5 motor strength present throughout Extrem: General: normal to inspection Psych: Mental Status: mental status grossly normal Objective Data Vital Signs Vital Signs: Vital Signs - 24 hr 10/22/22 14:00 10/22/22 21:33 10/23/22 05:05 Temperature 97.8 F 97.9 F 98.3 F Pulse Rate 54 L 87 55 L Respiratory Rate 16 16 16 Blood Pressure 115/65 121/74 117/63 Pulse Oximetry 100 97 99 Oxygen Delivery 10/23/22 08:00 Temperature Pulse Rate 55 L Respiratory Rate 16 Blood Pressure Pulse Oximetry 99 Oxygen Delivery Room Air Intake/Output Intake/Output: Intake & Output 10/20/22 10/21/22 10/22/22 10/23/22 23:59 23:59 23:59 23:59 Intake Total 3550 4360 4770 2430 Balance 3550 4360 4770 2430 Meds/Results Medications: Active Medications Generic Name Dose Route Start Last Admin Trade Name Freq PRN Reason Stop Dose Admin Enoxaparin Sodium 40 mg 10/22/22 10:20 10/23/22 12:16 Enoxaparin 40 Mg/0.4 Ml Syringe SUB-Q Not Given DAILY ANJU Hydromorphone HCl 1 mg 10/20/22 06:36 10/23/22 12:15 Hydromorphone Hcl Inj (*Crx) 1 Mg/Ml Syr IV PUSH 1 mg Q4H PRN Administration Pain Rated 7-10 Sodium Chloride 1,000 mls @ 125 mls/hr 10/20/22 06:40 10/23/22 04:47 Normal Saline Iv IV CONT 125 mls/hr .Q8H ANJU Administration Methylprednisolone Sodium Succinate 40 mg 10/20/22 22:00 10/23/22 05:25 Methylprednisolone Sod Succ 40 Mg Vial IV PUSH 40 mg Q8HR ANJU Administration Ondansetron HCl 4 mg 10/20/22 06:36 10/20/22 22:41 Ondansetron Inj 4 Mg/2 Ml Vial IV PUSH 4 mg Q4H PRN Administration Nausea Radiology Results: ITS Impressions Abdomen/Pelvis CT 10/20/22 06:05 Impression: Extensive, somewhat multifocal wall thickening of the distal ileum with adjacent inflammatory change, and upstream small bowel obstruction. Constellation of findings raises suspicion for Crohn's disease. Correlate clinically. Small amount of abdominopelvic ascites. Labs Labs: Laboratory Results - last 24 hr 10/21/22 10/23/22 05:01 04:50 WBC 7.7 RBC 3.24 L Hgb 10.3 L Hct 31.3 L MCV 96.6 MCH 31.8 MCHC 32.9 RDW 12.0 Plt Count
--- NOTE | 2022-10-23 14:32 | PM.DS ---
DS: Admitting Diagnosis Discharge Date 10/23/22 Admitting Diagnosis Abdominal pain DS: Discharge Diagnosis Discharge Diagnosis (1) Small bowel obstruction: Code(s): K56.609 - Unspecified intestinal obstruction, unspecified as to partial versus complete obstruction Status: Acute Assessment and Plan: Stable, improving, ADAT, appreciate general surgery consultation (2) Acute Crohn's disease with intestinal obstruction: Code(s): K50.912 - Crohn's disease, unspecified, with intestinal obstruction Status: Acute Assessment and Plan: Continue steroids, ADAT, improving, appreciate GI consultation, evaluate for biologics at discharge Plan DVT prophylaxis with lovenox GI prophylaxis not indicated Code status full code DS: Summary Hospital Course Hospital Course: 47-year-old female history of Crohn's disease presenting with abdominal pain and currently being treated for small-bowel obstruction and Crohn's flare. Diet advanced, patient tolerated. Okay for discharge per GI with 8 week prednisone taper and outpatient follow-up. Please see above and med rec for details. Time Spent with Patient Time attestation: Total time spent providing and/or coordinating discharge services: Exam Narrative: General: No acute distress, alert and oriented per baseline HEENT: Atraumatic, normocephalic, mucous membranes moist CV: Regular rate and rhythm, S1, S2 Lungs: Clear to auscultation bilaterally, no rales or crackles noted, no wheezes, good air entry Abdomen: Soft, nontender, nondistended, TTP, hypoactive BS, present Extremities: Normal to inspection Skin: No rashes noted, no lesions or wounds seen Psych: Euthymic, normal affect DS: Data Data Completed and Pending Labs on day of discharge: Labs from last 24 hours 10/23/22 10/21/22 04:50 05:01 WBC 7.7 RBC 3.24 L Hgb 10.3 L Hct 31.3 L MCV 96.6 MCH 31.8 MCHC 32.9 RDW 12.0 Plt Count 309 MPV 10.2 Immature Gran % (Auto) 0.4 Neut % (Auto) 69.0 Lymph % (Auto) 23.6 [place] % (Auto) 6.9 Eos % (Auto) 0.0 Baso % (Auto) 0.1 L Lymph # (Auto) 1.81 [place] # (Auto) 0.5 Eos # (Auto) 0.0 Baso # (Auto) 0.0 Abs Immat Gran (auto) 0.03 Absolute Neuts (auto) 5.3 Absolute Nucleated RBC 0.0 Nucleated RBC % 0.0 Sodium 133 L Potassium 3.7 Chloride 106 Carbon Dioxide 25 Anion Gap 2 L BUN 6 L Creatinine 0.50 L Estim Creat Clear Calc 116 Estimated GFR > 60 Glucose 115 H Calcium 8.0 L Total Bilirubin 0.3 AST 20 ALT 16 Alkaline Phosphatase 38 Total Protein 6.0 L Albumin 3.0 L TB Test (QFT) Gold Plus Negative TB Test (QFT) Nil 0.01 TB Test Mitogen - Nil 5.47 TB Test Ag - Nil 1 0.00 TB Test Ag - Nil 2 0.00 Discharge Plan Discharge Attending physician on discharge: Geri Plasencia Consulting providers: Aftab Soto; Sondra Martinez Discharging Clinician: Geri Plasencia Patient Disposition: Home, Self-Care Activity: as tolerated Diet: as tolerated Patient Instructions: Antibiotic Form Stand Alone Forms: General Discharge Information Follow-up/Referrals: Aftab Soto MD [Physician] - Nay Ogden FNP-C [Primary Care Provider] - Discharge Medications: New prednisone 10 mg tablet 10 mg PO DIRECTED Qty: 1 0RF Rx Instructions: take 4 tabs daily x 1 week take 3.5 tabs daily x 1 week take 3 tabs daily x 1 week take 2.5 tabs daily x 1 week take 2 tabs daily x 1 week take 1.5 tabs daily x 1 week take 1 tab daily x 1 week take 1/2 tab daily x 1 week Dispense QS to complete 8 week taper please in any combination of tablets Continued metronidazole 0.75 % gel 1 applic topical HS Rx Instructions: Applies on face for rosacea Date of admission: 10/22/22 13:27 Primary Care Provider: Nay Ogden Admitting [facility]
[2022-10-26 03:17] LABS: Hepatitis B Core Ab Total Nonreactive (Nonreactive)
== END 2022-10-23 14:47 | disposition home or self-care (01) | DRG 387 ==
LOC: ANHED 06:41 → ANH2MED 07:18
PROVIDERS: Internal Medicine Gastroenterology; Admitting Provider Internal Medicine; Emergency Provider General Practice; PCP Clinical Nurse Specialist; Visit Provider Student in an Organized Health Care Education/Training Program
DX: K50.912 Crohn's disease, unspecified, with intestinal obstruction (principal)
CPT/HCPCS: 36415; 74177; 80053; 81001; 81025; 83690; 85025; 85652; 86140; 86480; 86704; 86706; 87340; 96361; 96372; 96374; 96375; 96376; 99285; G0378; J1170; J1650; J2405; J2920; J7030; Q9967

== ENCOUNTER 2022-11-17 09:59 | Inpatient (IN) | payer OTHER, SELFPAY ==
[2022-11-17] VITALS (51 sets, daily range): BP systolic 94–118; BP diastolic 57–97; PULSE 75–110; RESP 11–23; TEMP 36.3–37.3; O2SAT 97–100; BMI 23.5
--- NOTE | ~2022-11-17 | CT_ITS ---
EXAMINATION: CTA abdomen pelvis DATE: 11/17/2022 13:53 INDICATION: Gastrointestinal hemorrhage. TECHNIQUE: Computed tomographic angiography (CTA) of the abdomen and pelvis was performed with 100 mL Omnipaque-350 intravenous contrast. Automated exposure control and iterative reconstruction techniqu e were employed. The dose-length product was 350.91 mGy-cm. Maximum intensity projection 3D-reconstru ctions of the aorta and other arteries were constructed by the technologist on a separate workstation . COMPARISON: CT abdomen and pelvis 10/20/2022 FINDINGS: The visualized portions of the lung bases demonstrate mild atelectasis. No pleural effusion . The heart size is normal. No pericardial effusion. The liver, gallbladder, spleen, pancreas, adrena l glands, and kidneys are normal. There are no dilated loops of bowel. There is wall thickening of th e distal ileum. The appendix is normal. There is mild aortic atherosclerosis. No aneurysm. There is n o significant stenosis of celiac axis, superior mesenteric artery, the renal arteries, or inferior me senteric artery. There are no pathologically enlarged lymph nodes. There is an umbilical hernia conta ining fat. There is physiologic fluid in the pelvis. There is mild lumbar spondylosis. IMPRESSION: 1. Persistent wall thickening of the distal ileum, consistent with Crohn disease. Reviewed, dictated and finalized at location A. IMPRESSION: 1. Persistent wall thickening of the distal ileum, consistent with Crohn diseas e.
--- NOTE | ~2022-11-17 | XR_ITS ---
EXAMINATION: XR small bowel follow through DATE: 11/20/2022 10:09 INDICATION: Crohn's ileitis. TECHNIQUE: Oral contrast was administered, and a time course of radiographs of the abdomen was obtain ed. Fluoroscopy of the small bowel was performed. Fluoroscopy exposure time was 0.3 minutes. The tota l number of images was 174. COMPARISON: CT abdomen and pelvis 11/17/2022 FINDINGS: There are no dilated loops of bowel. The terminal ileum is normal. Transit time from the stomach to p roximal colon was approximately 30 minutes. IMPRESSION: 1. Normal small bowel follow-through. The abnormalities of the ileum seen by CT are not well apprecia parisa on this exam. Reviewed, dictated and finalized at location A. IMPRESSION: 1. Normal small bowel follow-through. The abnormalities of the ileum seen by CT are not well appreciated on this exam.
--- NOTE | ~2022-11-17 | NM_ITS ---
EXAMINATION: NM GI bleeding DATE: 11/19/2022 16:38 INDICATION: Hematochezia. TECHNIQUE: 24.4 mCi Tc 99m in vitro labeled red cells was administered intravenously. Scintigraphic images of the abdomen were obtained for one hour. COMPARISON: CT abdomen and pelvis 11/17/2022 FINDINGS: No pattern of abnormal activity is seen in the abdomen or pelvis to suggest gastrointestina l hemorrhage. IMPRESSION: 1. No evidence of active gastrointestinal hemorrhage. Reviewed, dictated and finalized at location E.
[2022-11-17 10:30] LABS: Basophils Absolute Auto 0.1 K/mm3 (0.0-0.1); Basophils Percent Auto 0.6 % (0.2-1.2); Eosinophils Absolute Auto 0.2 K/mm3 (0-0.3); Immature Granulocyte Percent A 2.1 % (0-0.5); Lymphocytes Absolute Auto 2.94 K/mm3 (0.9-3.2); Mean Corpuscular Hemoglobin 32.5 pg (26-34); Mean Corpuscular Volume 101.5 fl (80-100); Mean Platelet Volume 9.4 fl (7.4-10.4); Monocytes Absolute Auto 0.7 K/mm3 (0.1-0.6); Monocytes Percent Auto 7.4 % (2.6-8.5); Neutrophils Absolute Auto 5.4 K/mm3 (1.3-6.7); Neutrophils Percent Auto 56.9 % (45.5-73.1); Platelet Count Result 322 k/mm3 (150-375); Red Cell Distribution Width 13.6 % (11.5-14.5); White Blood Count 9.5 K/mm3 (4.5-10.0)
[2022-11-17 10:36] LABS: Hemoglobin 6.5 g/dL (12.0-15.0)
[2022-11-17 10:37] LABS: Hematocrit 20.3 % (37.0-47.0)
[2022-11-17 10:44] LABS: INR 0.9; Prothrombin Time 12.2 Seconds (11.1-14.7)
[2022-11-17 10:50] LABS: Alanine Aminotransferase 17 U/L (6-35); Albumin Level 3.6 g/dL (3.5-5.1); Alkaline Phosphatase 42 U/L (38-126); Anion Gap 5 mmol/L (8-16); Aspartate Amino Transferase 20 U/L (14-36); Bilirubin,Total 0.4 mg/dL (0.2-1.3); Blood Urea Nitrogen 12 mg/dL (7-17); Calcium 8.7 mg/dL (8.4-10.2); Carbon Dioxide 26 mmol/L (22-30); Chloride 104 mmol/L (98-107); Estimated CRCL calculation 85 ml/min; Estimated Glomerular Filt Rate > 60; Glucose 107 mg/dL (65-110); Potassium 4.4 mmol/L (3.4-5.0); Sodium 135 mmol/L (137-145)
[2022-11-17] MEDS: SODIUM CHLORIDE 0.9% IV 250 ML 30 ML IV CONT ×2 (12:26→16:20)
[2022-11-17] MEDS: TUBING, BLOOD SET 1 EACH XX ×3 (13:00→19:58)
--- NOTE | 2022-11-17 15:23 | PC.NURSE ---
Pt tolerating blood transfusion well. Denies any c/o at this time
--- NOTE | 2022-11-17 15:43 | ED.GIBLEED ---
HPI - GI Bleed General Chief complaint: GI Bleed Stated complaint: blood in stool and increased heart rate Time Seen by Provider: 11/17/22 11:38 History of Present Illness HPI Narrative: This is a 47-year-old female, with past history of Crohn's, who presents the emergency department complaining of bright red blood per rectum for the past 4 days. The patient states her bleeding initially began with loose stools with some passage of clots. The second day, she notes this increased to flowing like water over the subsequent 2 days, it gradually improved. She states she has had lightheadedness, dyspnea on exertion but denies chest pain or loss of consciousness. She denies bleed Related Data Allergies Allergy/AdvReac Type Severity Reaction Status Date / Time No Known Allergies Allergy Verified 11/17/22 10:00 Review of Systems Review of Systems: CONSTITUTIONAL: Denies fever, chills, or sweats. CARDIOVASCULAR: Palpitations denies chest pain, palpitations, or edema. RESPIRATORY: Dyspnea on exertion denies cough GASTROINTESTINAL: Bright red blood per rectum denies abdominal pain, nausea, vomiting, or diarrhea. GENITOURINARY: Denies dysuria or hematuria. SKIN: Denies rash or itching. MUSCULOSKELETAL: Denies back pain, joint pain, or myalgia. NEUROLOGIC: Generalized weakness denies headache, numbness, dizziness PSYCHIATRIC: Denies anxiety or depression. [facility] Past Medical History Medical History Abdominal pain Acute Crohn's disease with intestinal obstruction Breast lump on right side at 11 o'clock position delivery delivered 1993, 2002 Crohn's disease Encounter to establish care Nausea Rash of unknown etiology Screening for lipoid disorders Small bowel obstruction Family History Family History Other Cerebrovascular accident Lung cancer Ovarian cancer Social History Social History Smoking status: Never smoker Alcohol intake: current Alcohol use details: occasionally Substance use: never Lack of Transportation: No Lack of Food: Never True Current Housing: I Have Housing Concerned About Future Housing: No Difficulty Paying Gas/Electric Bills: No Difficulty Paying for Meds: No Currently Unemployed: No Education: Master's Degree or Higher Difficulty w/ Childcare or Family Care: No Living arrangements: with family 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s: No Exam Narrative: GENERAL: Well-developed, well-nourished, and in no acute distress. Appears pale HEAD: Normocephalic, atraumatic. EYES: PERRLA and EOMI. ENT: Nares clear, no rhinorrhea or epistaxis. Mucous membranes moist. Oropharynx without tonsillar hypertrophy exudate or other lesions. NECK: Supple. CHEST: Clear to auscultation. No respiratory distress. No wheezes rales or rhonchi HEART: Regular rate and rhythm. No murmur heard. Normal peripheral pulses. ABDOMEN: Soft, nontender, nondistended, normal active bowel sounds. EXTREMITIES: Normal range of motion. No edema. SKIN: Warm, dry, no rash. NEURO: Alert and oriented x3. Moving all 4 limbs purposefully. PSYCH: Normal mood and affect. Course Course Emergency Course: 12:17 - Hemoglobin 6.5, this is down from 10.3 about 4 weeks ago. Coags within normal limits. Chemistries demonstrate mild hyponatremia of 135. Will consent, type and cross for unit of blood and obtain CTA of the abdomen and pelvis. 15:20 - CTA of the abdomen pelvis is not concerning for acute bleeding and shows changes consistent with Crohn's (wall thickening at the terminal ileum). I discussed the patient wi
--- NOTE | 2022-11-17 15:51 | PC.NURSE ---
Pt denies any c/o tolerating transfusion
[2022-11-17] MEDS: LACTATED RINGERS 1,000 ML 125 ML IV CONT (18:35)
[2022-11-17] MEDS: TUBING, BLOOD PLUM PUMP TUBING 1 EACH XX (20:40)
--- NOTE | 2022-11-17 21:22 | ADMGEN ---
This patient, Emiliana Pleitez, was admitted to IMU Room 210-01 at 2040 on 11/17/2022. Patient/family oriented to hospital policies and general routines including ID bracelet, bed and alarms, visiting hours, pain management, procedures, bathroom and other care routines, personal items, smoking policy, room service/diet, and visiting hours. Information on how to activate the Rapid Response Team has been discussed. Patient/Family are encouraged to report perceived risks to care and to ask questions if they do not understand what they are told or what they should do.
[2022-11-17 23:11] LABS: Hematocrit 23.4 % (37.0-47.0); Hemoglobin 7.9 g/dL (12.0-15.0)
--- NOTE | 2022-11-17 23:23 | PM.IMHP ---
H&P: HPI History of Present Illness Date/Time: 11/17/22 23:23 Chief Complaint: pooping large amounts of blood Narrative: 47-year-old female with a past medical history of Crohn's disease who presented to the ER via private vehicle due to putting blood since Wednesday. The patient was diagnosed with Crohn's disease about 12 years ago and treated with immune modular but stopped all treatment after she was told that her Crohn's disease had resolved. She had no problems for about 5 or 6 year.. She reports that her symptoms are usually associated with difficulty swallowing and not tolerating food. She did not have chronic abdominal pain or diarrhea. She would occasionally have some blood in her stool. She has had a total of 3 small-bowel obstructions in the past with with her most recent 1 being in October. When she had her bowel obstruction again in October she realized that her Crohn's was acting backup. She was treated with conservative management and Solu-Medrol 40 mg q.8 hours and transition to p.o. prednisone. She is on prednisone taper currently. She denies any nausea or vomiting. She reports that on the she had a bowel movement in it was significantly bloody. She has only been having 1 bowel movement today but each time she had a bowel movement it is had a fair amount of blood. However, each successive day the amount of blood that is coming out is last. She did have an associated fever of 100.3? on Wednesday (day 2 of symptoms). She reports that she decided come into the ER because for the last couple of days when she was set up she would have near syncopal symptoms in almost blacked out. She has been waking up with palpitations in her heart pounding for the last 3 days. She is also having racing of her heart when she even walks across the room for the last couple of days. She denies any chest pain. She denies any episodes of diaphoresis nausea or vomiting. She has not had any respiratory symptoms. She denies any recent ill contacts. Review of Systems Review of Systems: 12 systems were reviewed with pertinent positives and negatives per HPI. Except as documented in the HPI, all other systems were reviewed and are negative. [facility] Past Medical History Medical History Breast lump on right side at 11 o'clock position Crohn's disease Small bowel obstruction (10/20/22) Due to Crohn's Vitamin D deficiency Surgical History Surgical History History of 2 sections 1993 and 2002 History of colonoscopy Family History Family History (Updated 11/18/22 @ 01:57 by Cathy Velez DO) Father Hx of CABG, Onset Age: 60 Grandparent Lung cancer Grandparent Ovarian cancer Social History Social History (Updated 11/18/22 @ 02:02 by Cathy Velez DO) Social History: She lives with her of 30 years. They had 2 children who are now adults. 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 She drinks a few alcoholic beverages on a weekly basis. She denies any history of tobacco use or illicit substance use. She is a vegan. Code status: Full code Surrogate decision maker: Smoking status: Never smoker Second hand tobacco smoke exposure: No Alcohol intake: current Drinks per week: 2 Alcohol use details: occasionally Substance use: never Lack of Transportation: No Lack of Food: Never True Current Housing: I Have Housing Concerned About Future Housing: No Difficulty Paying Gas/Electric Bills: No Difficulty Paying for Meds: No Currently Unemployed: No Education: Master's Degree or Higher Difficulty w/ Childcare or Family Care: No Living arrangements: with family 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 Gender identity (if verbalized by the patient): Female Sexual Orientation (
[2022-11-18] VITALS (25 sets, daily range): BP systolic 93–115; BP diastolic 48–83; PULSE 60–91; RESP 12–20; TEMP 36.2–36.8; O2SAT 96–100
[2022-11-18] MEDS: TEMAZEPAM (*CRX) 15 MG CAPSULE PO ×2 (00:10→20:51)
[2022-11-18] MEDS: LACTATED RINGERS 1,000 ML 125 ML IV CONT (04:47)
[2022-11-18 05:07] LABS: Basophils Percent Auto 0.3 % (0.2-1.2); Eosinophils Absolute Auto 0.2 K/mm3 (0-0.3); Eosinophils Percent Auto 1.9 % (0-4.4); Immature Granulocyte Absolute 0.15 K/mm3 (0.00-0.031); Immature Granulocyte Percent A 1.7 % (0-0.5); Lymphocytes Absolute Auto 3.77 K/mm3 (0.9-3.2); Lymphocytes Percent Auto 43.2 % (18.3-44.2); Mean Corpuscular HGB Conc 32.7 g/dl (32-36); Mean Corpuscular Hemoglobin 31.4 pg (26-34); Mean Corpuscular Volume 96.1 fl (80-100); Mean Platelet Volume 9.6 fl (7.4-10.4); Monocytes Absolute Auto 0.6 K/mm3 (0.1-0.6); Monocytes Percent Auto 7.2 % (2.6-8.5); Neutrophils Percent Auto 45.7 % (45.5-73.1); Platelet Count Result 201 k/mm3 (150-375); Red Blood Count 2.07 M/mm3 (4.2-5.4); Red Cell Distribution Width 15.9 % (11.5-14.5); White Blood Count 8.7 K/mm3 (4.5-10.0)
[2022-11-18 05:15] LABS: Hematocrit 19.9 % (37.0-47.0); Hemoglobin 6.5 g/dL (12.0-15.0)
[2022-11-18 05:27] LABS: Anion Gap 3 mmol/L (8-16); Blood Urea Nitrogen 15 mg/dL (7-17); Calcium 7.4 mg/dL (8.4-10.2); Carbon Dioxide 24 mmol/L (22-30); Chloride 108 mmol/L (98-107); Estimated CRCL calculation 98 ml/min; Estimated Glomerular Filt Rate > 60; Glucose 90 mg/dL (65-110); Potassium 3.9 mmol/L (3.4-5.0); Sodium 135 mmol/L (137-145)
[2022-11-18] MEDS: predniSONE 20 MG TABLET PO (08:53)
[2022-11-18] MEDS: PANTOPRAZOLE SODIUM IV 40 MG VIAL IV PUSH ×2 (08:53→17:34)
--- NOTE | 2022-11-18 09:50 | PM.IMPN ---
Progress Note: A&P Assessment and Plan (1) Acute GI bleeding: Code(s): K92.2 - Gastrointestinal hemorrhage, unspecified Status: Acute Assessment and Plan: Appreciate GI consult, pending Recheck hemoglobin after transfusion, monitor closely (2) Crohn's disease: Qualifiers: Digestive disease complication type: with rectal bleeding Gastrointestinal tract location: small intestine Qualified Code(s): K50.011 - Crohn's disease of small intestine with rectal bleeding Code(s): K50.90 - Crohn's disease, unspecified, without complications Status: Acute Assessment and Plan: Per GI Possible underlying infection, stool studies pending, C diff negative (3) Symptomatic anemia: Code(s): D64.9 - Anemia, unspecified Status: Acute Assessment and Plan: As above (4) Insomnia: Qualifiers: Insomnia type: adjustment Qualified Code(s): F51.02 - Adjustment insomnia Code(s): G47.00 - Insomnia, unspecified Status: Acute Assessment and Plan: Restoril as needed (5) Hypotension due to blood loss: Code(s): I95.89 - Other hypotension; R58 - Hemorrhage, not elsewhere classified Status: Acute Assessment and Plan: Stable, monitor Blood pressure reviewed 11/18 Plan DVT prophylaxis with SCDs GI prophylaxis with PPI b.i.d. Code status full code Subjective Date/time seen: 11/18/22 09:50 Interval history: 47-year-old female with history of Crohn's disease presenting with GI bleed and possible Crohn's exacerbation, currently being transfused. No overnight events noted. No chest pain or shortness of breath. No nausea, vomiting or diarrhea. No fevers or chills. Patient is still seen blood streaks in her stool. She feels much better than when she came in. Review of Systems Review of Systems: 12 point review of systems was assessed and was negative except as noted in the HPI Exam Narrative: General: No acute distress, alert and oriented per baseline HEENT: Atraumatic, normocephalic, mucous membranes moist CV: Regular rate and rhythm, S1, S2 Lungs: Clear to auscultation bilaterally, no rales or crackles noted, no wheezes, good air entry Abdomen: Soft, nontender, nondistended Extremities: Normal to inspection Skin: No rashes noted, no lesions or wounds seen Psych: Euthymic, normal affect Objective Data Vital Signs Vital Signs: Vital Signs - 24 hr 11/17/22 10:13 11/17/22 11:22 11/17/22 11:31 Temperature 97.3 F L Pulse Rate 110 H 103 H 98 Respiratory Rate 16 11 L 23 H Blood Pressure 110/75 108/97 H 103/72 Pulse Oximetry 100 100 100 Oxygen Delivery 11/17/22 11:46 11/17/22 12:48 11/17/22 14:27 Temperature 98.0 F 97.9 F 98.1 F Pulse Rate 94 99 108 H Respiratory Rate 15 18 18 Blood Pressure 98/71 L 101/67 118/73 Pulse Oximetry 99 99 100 Oxygen Delivery 11/17/22 14:49 11/17/22 15:49 11/17/22 16:08 Temperature 98.1 F 98.1 F 98.3 F Pulse Rate 97 86 102 H Respiratory Rate 20 16 20 Blood Pressure 102/69 100/64 113/86 Pulse Oximetry 99 100 100 Oxygen Delivery 11/17/22 18:40 11/17/22 19:51 11/17/22 19:49 Temperature 98.1 F 99.1 F 98.9 F Pulse Rate 85 89 85 Respiratory Rate 18 19 15 Blood Pressure 94/64 L 96/62 L 95/60 L Pulse Oximetry 99 100 100 Oxygen Delivery 11/17/22 12:55 11/17/22 13:00 11/17/22 13:15 Temperature Pulse Rate 101 H 102 H 100 Respiratory Rate 20 18 17 Blood Pressure Pulse Oximetry 100 99 99 Oxygen Delivery 11/17/22 13:39 11/17/22 13:58 11/17/22 14:02 Temperature Pulse Rate 103 H Respiratory Rate 18 Blood Pressure Pulse Oximetry 100 100 100 Oxygen Delivery 11/17/22 14:19 11/17/22 14:29 11/17/22 14:30 Temperature Pulse Rate Respiratory Rate Blood Pressure 118/73 Pulse Oximetry 100 100 100 Oxygen Delivery 11/17/22 14:31 11/17/22 14:45 11/17/22 14:46 Temperature
[2022-11-18 09:54] LABS: Toxigenic C. Diff NEGATIVE (NEGATIVE)
--- NOTE | 2022-11-18 13:56 | WPDGICN ---
Assessment and Plan Assessment and plan (1) Acute GI bleeding: Code(s): K92.2 - Gastrointestinal hemorrhage, unspecified Status: Acute Assessment and Plan: will proceed with egd and colonoscopy tomorrow she says that bleeding slowed down and feeling better (2) Hypotension due to blood loss: Code(s): I95.89 - Other hypotension; R58 - Hemorrhage, not elsewhere classified Status: Acute Assessment and Plan: treated with blood transfusion and fluids more recommendations after scope (3) Crohn's disease: Qualifiers: Gastrointestinal tract location: small intestine Digestive disease complication type: with rectal bleeding Qualified Code(s): K50.011 - Crohn's disease of small intestine with rectal bleeding Code(s): K50.90 - Crohn's disease, unspecified, without complications Status: Acute Assessment and Plan: SBO last month treated medically, right now denies abdominal pain, nausea or more diarrhea than usual will assess with colonoscopy tomorrow TB and HBV status negative then will need follow-up in office- she can be a candidate for rinvoq (oral, used anti-tnf in the past) or stelara (4) Ileitis, terminal: Code(s): K50.00 - Crohn's disease of small intestine without complications Status: Acute Assessment and Plan: colonoscopy, denies pain now continue with steroids GI Consult Note Consult date/time: 11/18/22 13:56 Reason for consult: rectal bleeding, Crohn's HPI: Emiliana Pleitez is a 47 year old female who was diagnosed with Crohn's disease in 2012 in [place], initially she was on remicade for over a year but did not like infusions then transitioned to humira, eventually after some time she decided to discontinue medications (she says that does not like using medications longterm), she had at least 3-4 colonoscopies since with last one 3 years ago. I met her a month ago when she was admitted with Crohn's flare and partial SBO, treated medically, she went home with slow prednisone taper- currently taking 20 mg prednisone and plan was to follow-up in office so we can talk about biologics. She came here with new onset of large amount of rectal bleeding on Wednesday, denies any n/v or abdominal pain really, it does not feel like another Crohn's flare up but became lightheaded, had palpitations and fell like passing out with near syncopal episode. Hgb on arrival 6.5 (recent hospitalization 12-23), given blood transfusion and admitted. 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 Last EGD years ago. CT scan reviewed, Persistent wall thickening of the distal ileum, consistent with Crohn disease. Review of Systems Constitutional: Constitutional: Reports lethargy Eyes: Eyes: Denies blurry vision ENT: Reports Normal hearing present Cardiovascular: Cardiovascular: Reports lightheadedness and Reports palpitations Respiratory: Respiratory: Denies cough Gastrointestinal: Gastrointestinal: Denies abdominal pain, Reports hematochezia, Denies diarrhea, Denies nausea and Denies vomiting Genitourinary: Genitourinary: Denies hematuria Musculoskeletal: Musculoskeletal: Denies back pain Integumentary/Breasts: Skin/Breast: Denies rash Neurologic: Denies Abnormal speech present Psychiatric: Psychiatric: Denies behavioral changes [facility] Past Medical History Medical History (Updated 11/18/22 @ 14:05 by Aftab Soto MD) Breast lump on right side at 11 o'clock position Crohn's disease Ileitis, terminal Small bowel obstruction (10/20/22) Due to Crohn's Vitamin D deficiency Surgical History Surgical History History of 2 sections 1993 and 2002 History of colonoscopy Family History Family History (Updated 11/18/22 @ 01:57 by Cathy Velez DO) Father Hx of CABG, Onset Age: 60 Grandparent Lung cancer Grandparent Ovarian cancer Social History Social History (Updated 11/18
[2022-11-18] MEDS: BISACODYL 5 MG TABLET EC 20 MG PO (15:17)
[2022-11-18] MEDS: polyethylene glycoL 3350 238 GM BOTTLE PO (15:17)
--- NOTE | 2022-11-18 16:22 | PC.NURSE ---
On 11/18/22, the student, Milly [facility]LL [facility], provided care and completed [facility] documentation on this patient. I have reviewed the student's documentation and agree with the findings.
[2022-11-18 16:23] LABS: Hematocrit 29.6 % (37.0-47.0); Hemoglobin 9.7 g/dL (12.0-15.0)
[2022-11-18 22:15] LABS: Hematocrit 28.3 % (37.0-47.0); Hemoglobin 9.4 g/dL (12.0-15.0)
[2022-11-19] VITALS (17 sets, daily range): BP systolic 80–102; BP diastolic 47–68; PULSE 56–93; RESP 15–18; TEMP 35.8–37.3; O2SAT 97–100
[2022-11-19 04:53] LABS: Hematocrit 24.4 % (37.0-47.0); Hemoglobin 8.1 g/dL (12.0-15.0)
[2022-11-19] MEDS: PANTOPRAZOLE SODIUM IV 40 MG VIAL IV PUSH ×2 (09:21→17:57)
[2022-11-19] MEDS: predniSONE 20 MG TABLET PO (09:21)
[2022-11-19] MEDS: LACTATED RINGERS 1,000 ML 150 ML IV CONT (11:27)
--- NOTE | 2022-11-19 11:51 | WPDANESEPPF ---
Anes - Initial Pre Proc Eval Procedure: Operation Date: 11/19/22 12:00 Proposed Procedures p Esophagogastroduodenoscopy & Colonoscopy - Aftab Soto MD Date/Time: 11/19/22 11:51 Surgeon: Osei Tineo MD Pre Op Diagnosis: GI Bleed Patient Data Age: 47 Gender: F Height: 1.73 m Weight: 70.2 kg Last Vital Signs Temp 97.2 F L 11/19/22 11:25 Pulse 64 11/19/22 11:25 Resp 18 11/19/22 11:25 BP 102/64 11/19/22 11:25 Pulse Ox 99 11/19/22 11:25 O2 Del Method Room Air 11/19/22 11:25 Allergies Allergy/AdvReac Type Severity Reaction Status Date / Time morphine AdvReac Itching Verified 11/19/22 05:00 Home Medications Medication Instructions Recorded Confirmed Type prednisone 10 mg tablet 20 mg PO DAILY 11/17/22 11/17/22 History Laboratory Tests 11/17/22 11/18/22 11/18/22 10:24 16:19 22:09 Hgb 9.7 L D g/dL 9.4 L g/dL (12.0-15.0) (12.0-15.0) Hct 29.6 L % 28.3 L % (37.0-47.0) (37.0-47.0) Crossmatch See Detail 11/19/22 04:25 Hgb 8.1 L g/dL (12.0-15.0) Hct 24.4 L % (37.0-47.0) Crossmatch Patient hx anesthesia problems: none Family hx anesthesia problems: none Results Review: All pre-operative results and documents have been reviewed as part of the pre-operative evaluation. [facility] Past Medical History Medical History (Updated 11/18/22 @ 14:05 by Aftab Soto MD) Breast lump on right side at 11 o'clock position Crohn's disease Ileitis, terminal Small bowel obstruction (10/20/22) Due to Crohn's Vitamin D deficiency Surgical History Surgical History History of 2 sections 1993 and 2002 History of colonoscopy Family History Family History (Updated 11/18/22 @ 01:57 by Cathy Velez DO) Father Hx of CABG, Onset Age: 60 Grandparent Lung cancer Grandparent Ovarian cancer Social History Social History (Updated 11/18/22 @ 02:02 by Cathy Velez DO) Social History: She lives with her of 30 years. They had 2 children who are now adults. 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 She drinks a few alcoholic beverages on a weekly basis. She denies any history of tobacco use or illicit substance use. She is a vegan. Code status: Full code Surrogate decision maker: Smoking status: Never smoker Second hand tobacco smoke exposure: No Alcohol intake: current Drinks per week: 2 Alcohol use details: occasionally Substance use: never Lack of Transportation: No Lack of Food: Never True Current Housing: I Have Housing Concerned About Future Housing: No Difficulty Paying Gas/Electric Bills: No Difficulty Paying for Meds: No Currently Unemployed: No Education: Master's Degree or Higher Difficulty w/ Childcare or Family Care: No Living arrangements: with family 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s: No Anes - Eval Final PreProcedure Day of Procedure 11/19/22 11:51 Patient weight: normal Heart: regular rate and rhythm Lungs: clear to auscultation Airway: Mallampati scale class II Neurological: alert and oriented Last oral intake: >/= 8 hours ASA classification: II Emergent: no Anesthetic plan: proceed Anesthesia type and monitoring: general GIVS and standard monitoring Results Review: All pre-operative results and documents have been reviewed as part of the pre-operative evaluation. Informed Consent: The patient's anesthetic plan and its attendant risks and benefits were discussed with the patient/family/POA. Questions were solicited and answers provided to the satisfaction of the patient/family/PO
--- NOTE | 2022-11-19 12:14 | SUR.OPER ---
EGD began at 1205. Ended at 1208. Colonoscopy began at 1212.
--- NOTE | 2022-11-19 13:23 | PM.IMPN ---
Progress Note: A&P Assessment and Plan (1) Acute GI bleeding: Code(s): K92.2 - Gastrointestinal hemorrhage, unspecified Status: Acute Assessment and Plan: Appreciate GI consult, EGD + colonoscopy + SBFT 11/19 Recheck hemoglobin after transfusion, monitor closely (2) Crohn's disease: Qualifiers: Gastrointestinal tract location: small intestine Digestive disease complication type: with rectal bleeding Qualified Code(s): K50.011 - Crohn's disease of small intestine with rectal bleeding Code(s): K50.90 - Crohn's disease, unspecified, without complications Status: Acute Assessment and Plan: Per GI Possible underlying infection, stool studies pending, C diff negative (3) Symptomatic anemia: Code(s): D64.9 - Anemia, unspecified Status: Acute Assessment and Plan: As above (4) Insomnia: Qualifiers: Insomnia type: adjustment Qualified Code(s): F51.02 - Adjustment insomnia Code(s): G47.00 - Insomnia, unspecified Status: Acute Assessment and Plan: Restoril as needed (5) Hypotension due to blood loss: Code(s): I95.89 - Other hypotension; R58 - Hemorrhage, not elsewhere classified Status: Acute Assessment and Plan: Stable, monitor Blood pressure reviewed 11/19 Plan DVT prophylaxis with SCDs GI prophylaxis with PPI b.i.d. Code status full code Subjective Date/time seen: 11/19/22 13:23 Interval history: 47-year-old female with history of Crohn's disease presenting with GI bleed and possible Crohn's exacerbation, currently being transfused. No overnight events noted. No fevers. No complaints per nursing staff. Review of Systems Review of Systems: in procedures Exam Narrative: in procedures Objective Data Vital Signs Vital Signs: Vital Signs - 24 hr 11/18/22 14:00 11/18/22 15:26 11/18/22 16:00 Temperature 98.1 F Pulse Rate 74 69 80 Respiratory Rate 16 Blood Pressure 115/83 Pulse Oximetry 98 Oxygen Delivery 11/18/22 16:00 11/18/22 18:00 11/18/22 20:00 Temperature 97.8 F Pulse Rate 69 66 Respiratory Rate 18 Blood Pressure 100/60 Pulse Oximetry 100 Oxygen Delivery Room Air 11/18/22 20:00 11/18/22 20:00 11/18/22 22:00 Temperature Pulse Rate 69 71 Respiratory Rate Blood Pressure Pulse Oximetry 100 Oxygen Delivery Room Air 11/19/22 00:00 11/19/22 00:00 11/19/22 00:00 Temperature 97.5 F L Pulse Rate 70 65 Respiratory Rate 18 Blood Pressure 92/57 L Pulse Oximetry 99 Oxygen Delivery Room Air 11/19/22 02:00 11/19/22 04:00 11/19/22 04:00 Temperature Pulse Rate 59 L 66 Respiratory Rate Blood Pressure Pulse Oximetry Oxygen Delivery Room Air 11/19/22 04:00 11/19/22 06:00 11/19/22 08:00 Temperature 97.6 F 96.4 F L Pulse Rate 58 L 64 65 Respiratory Rate 18 18 Blood Pressure 92/57 L 98/56 L Pulse Oximetry 99 99 Oxygen Delivery 11/19/22 11:25 11/19/22 12:32 11/19/22 12:42 Temperature 97.2 F L Pulse Rate 64 78 74 Respiratory Rate 18 17 15 Blood Pressure 102/64 84/54 L 90/52 L Pulse Oximetry 99 100 100 Oxygen Delivery Room Air Room Air Room Air 11/19/22 12:52 Temperature Pulse Rate 75 Respiratory Rate 16 Blood Pressure 101/59 L Pulse Oximetry 100 Oxygen Delivery Room Air Intake/Output Intake/Output: Intake & Output 11/16/22 11/17/22 11/18/22 11/19/22 23:59 23:59 23:59 23:59 Intake Total 1540 4103 300 Output Total 300 1800 400 Balance 1240 2303 -100 Meds/Results Medications: Active Medications Generic Name Dose Route Start Last Admin Trade Name Freq PRN Reason Stop Dose Admin Ondansetron HCl 4 mg 11/17/22 16:12 Ondansetron Inj 4 Mg/2 Ml Vial IV PUSH Q4H PRN Nausea Pantoprazole Sodium 40 mg 11/18/22 09:00 11/19/22 09:21 Pantoprazole Sodium Iv 40 Mg Vial IV PUSH 40 mg BID ANJU Administr
--- NOTE | 2022-11-19 15:43 | PC.NURSE ---
On 11/19/22, the student, Abdi Olmos [facility], provided care. I have reviewed the student's work and agree with the findings.
--- NOTE | 2022-11-19 16:41 | PC.NURSE ---
On 11/19/22, the student, Abdi [facility], provided care and completed [facility] documentation on this patient. I have reviewed the student's documentation and agree with the findings.
[2022-11-19] MEDS: TEMAZEPAM (*CRX) 15 MG CAPSULE PO (20:51)
[2022-11-20] VITALS (10 sets, daily range): BP systolic 89–108; BP diastolic 49–68; PULSE 54–94; RESP 15–18; TEMP 36.5–37.6; O2SAT 97–100
[2022-11-20] MEDS: PANTOPRAZOLE SODIUM IV 40 MG VIAL IV PUSH (07:47)
[2022-11-20] MEDS: predniSONE 20 MG TABLET PO (07:47)
[2022-11-20 07:58] LABS: Basophils Percent Auto 0.5 % (0.2-1.2); Eosinophils Absolute Auto 0.2 K/mm3 (0-0.3); Eosinophils Percent Auto 2.9 % (0-4.4); Hematocrit 26.6 % (37.0-47.0); Hemoglobin 8.6 g/dL (12.0-15.0); Immature Granulocyte Absolute 0.15 K/mm3 (0.00-0.031); Immature Granulocyte Percent A 1.9 % (0-0.5); Lymphocytes Absolute Auto 3.46 K/mm3 (0.9-3.2); Lymphocytes Percent Auto 43.7 % (18.3-44.2); Mean Corpuscular HGB Conc 32.3 g/dl (32-36); Monocytes Absolute Auto 0.5 K/mm3 (0.1-0.6); Monocytes Percent Auto 6.3 % (2.6-8.5); Neutrophils Absolute Auto 3.5 K/mm3 (1.3-6.7); Neutrophils Percent Auto 44.7 % (45.5-73.1); Platelet Count Result 283 k/mm3 (150-375); Red Blood Count 2.77 M/mm3 (4.2-5.4); Red Cell Distribution Width 16.9 % (11.5-14.5); White Blood Count 7.9 K/mm3 (4.5-10.0)
[2022-11-20 08:08] LABS: Anion Gap 1 mmol/L (8-16); Blood Urea Nitrogen 4 mg/dL (7-17); Calcium 8.1 mg/dL (8.4-10.2); Carbon Dioxide 28 mmol/L (22-30); Chloride 108 mmol/L (98-107); Estimated CRCL calculation 85 ml/min; Estimated Glomerular Filt Rate > 60; Glucose 89 mg/dL (65-110); Potassium 3.8 mmol/L (3.4-5.0); Sodium 137 mmol/L (137-145)
--- NOTE | 2022-11-20 12:36 | WPDANESPN ---
Anes - Prog Note Post-Op Date/Time: 11/20/22 12:36 Cardiovascular status: normal Respiratory status: normal Airway patency: baseline Mental status: baseline Post-Op hydration status: normal Vital Signs: Last Vital Signs Temp 36.5 C 11/20/22 11:45 Pulse 94 11/20/22 12:00 Resp 18 11/20/22 11:45 BP 108/68 11/20/22 11:45 Pulse Ox 100 11/20/22 11:45 O2 Del Method Room Air 11/20/22 04:00 Pain Score (VAS): 0/10 I/O: Intake & Output 11/19/22 11/20/22 11/20/22 23:59 07:59 15:59 Intake Total 480 740 Output Total 200 Balance 280 740 Laboratory Tests 11/20/22 07:44 11/20/22 07:44 11/20/22 07:44 WBC 7.9 RBC 2.77 L Hgb 8.6 L Hct 26.6 L MCV 96.0 MCH 31.0 MCHC 32.3 RDW 16.9 H Plt Count 283 MPV 9.0 Immature Gran % (Auto) 1.9 H Neut % (Auto) 44.7 L Lymph % (Auto) 43.7 Mcdonough % (Auto) 6.3 Eos % (Auto) 2.9 Baso % (Auto) 0.5 Lymph # (Auto) 3.46 H Mcdonough # (Auto) 0.5 Eos # (Auto) 0.2 Baso # (Auto) 0.0 Abs Immat Gran (auto) 0.15 H Absolute Neuts (auto) 3.5 Absolute Nucleated RBC 0.0 Nucleated RBC % 0.0 Sodium 137 Potassium 3.8 Chloride 108 H Carbon Dioxide 28 Anion Gap 1 L BUN 4 L D Creatinine 0.70 Estim Creat Clear Calc 85 Estimated GFR > 60 Glucose 89 Calcium 8.1 L Microbiology 11/18/22 08:46 Stool Escherichia coli Shiga Toxins - Final 11/18/22 08:46 Stool Campylobacter Antigen Assay - Final 11/18/22 08:46 Stool Cryptosporidium Exam - Final 11/18/22 08:46 Stool Giardia Antigen (TERESA) - Final Post-procedural complaints: none Patient Feedback: Patient satisfied with anesthetic care.
--- NOTE | 2022-11-20 13:31 | WPDGIPROGNO ---
Progress Note: A&P Assessment and Plan (1) Symptomatic anemia: Code(s): D64.9 - Anemia, unspecified Status: Acute Assessment and Plan: no more bleeding (colonoscopy found old blood probably from small bowel) and ileitis gib scan negative h/h stable now she can go home but will need follow-up in office, plan is to start biologics (2) Acute GI bleeding: Code(s): K92.2 - Gastrointestinal hemorrhage, unspecified Status: Acute Assessment and Plan: resolved (3) Ileitis, terminal: Code(s): K50.00 - Crohn's disease of small intestine without complications Status: Acute Assessment and Plan: only on steroids for now but strongly recommended to start biologics patient should come to office and will start process (4) Crohn's disease: Qualifiers: Gastrointestinal tract location: small intestine Digestive disease complication type: with rectal bleeding Qualified Code(s): K50.011 - Crohn's disease of small intestine with rectal bleeding Code(s): K50.90 - Crohn's disease, unspecified, without complications Status: Acute Subjective Date/time seen: 11/20/22 13:31 Interval history: no more bleeding, colonoscopy with ileitis and stricture, noted old hematin then GIB scan negative she is feeling better and tolerating diet Review of Systems Review of Systems: All systems reviewed & are unremarkable except as noted in HPI and below Exam Const: General: comfortable and no acute distress HENMT: Face/Nose/Sinus: Normal nares present Eyes: General: appearance normal, both eyes and all related structures Neck: Neck: no JVD Resp: Auscultation: clear to auscultation bilaterally Cardio: Rate: regular rate Rhythm: regular rhythm GI: Inspection: non-distended GI Palp: Yes Soft to palpation, No Tenderness to palpation present (GI) and No Guarding due to palpation present (GI) Auscultation: normal bowel sounds Skin: General skin exam: normal color Neuro: General: gait normal Speech: normal speech Extrem: General: normal to inspection Psych: Mental Status: mental status grossly normal Objective Data Vital Signs Vital Signs: Vital Signs - 24 hr 11/19/22 16:40 11/19/22 16:00 11/19/22 14:00 Temperature 99.1 F Pulse Rate 69 69 Respiratory Rate 16 Blood Pressure 94/68 L Pulse Oximetry 100 Oxygen Delivery Room Air 11/19/22 16:00 11/19/22 18:00 11/19/22 20:00 Temperature 98.5 F Pulse Rate 63 87 60 Respiratory Rate 16 Blood Pressure 89/51 L Pulse Oximetry 97 Oxygen Delivery 11/19/22 20:00 11/19/22 20:00 11/19/22 23:52 Temperature 97.5 F L Pulse Rate 60 67 56 L Respiratory Rate 16 16 Blood Pressure 80/47 L Pulse Oximetry 97 98 Oxygen Delivery Room Air 11/19/22 22:00 11/20/22 00:00 11/20/22 00:00 Temperature Pulse Rate 73 56 L 80 Respiratory Rate 16 Blood Pressure Pulse Oximetry 98 Oxygen Delivery Room Air 11/20/22 02:00 11/20/22 04:00 11/20/22 04:00 Temperature Pulse Rate 57 L 61 56 L Respiratory Rate 16 Blood Pressure Pulse Oximetry 98 Oxygen Delivery Room Air 11/20/22 04:00 11/20/22 06:00 11/20/22 07:49 Temperature 99.6 F 98.5 F Pulse Rate 60 54 L 63 Respiratory Rate 15 18 Blood Pressure 89/49 L 90/57 L Pulse Oximetry 100 98 Oxygen Delivery 11/20/22 10:00 11/20/22 08:00 11/20/22 11:45 Temperature 97.7 F Pulse Rate 61 87 69 Respiratory Rate 18 Blood Pressure 108/68 Pulse Oximetry 100 Oxygen Delivery 11/20/22 12:00 11/20/22 12:00 11/20/22 08:52 Temperature Pulse Rate 94 Respiratory Rate Blood Pressure Pulse Oximetry 100 97 Oxygen Delivery Room Air Room Air Intake/Output Intake/Output: Intake & Output 11/17/22 11/18/22 11/19/22 11/20/22 23:59 23:59 23:59 23:59 Intake Total 1540 4103 780 860 Output Total 300 1800 600 Balance 1240 2303 180 860 Meds/Results Medications: Active Medi
--- NOTE | 2022-11-20 13:37 | PM.DS ---
DS: Admitting Diagnosis Discharge Date 11/20/2022 Admitting Diagnosis Rectal bleeding DS: Discharge Diagnosis Discharge Diagnosis (1) Acute GI bleeding: Code(s): K92.2 - Gastrointestinal hemorrhage, unspecified Status: Acute Assessment and Plan: Appreciate GI consult, EGD + colonoscopy + SBFT 11/19 Recheck hemoglobin after transfusion, monitor closely (2) Crohn's disease: Qualifiers: Gastrointestinal tract location: small intestine Digestive disease complication type: with rectal bleeding Qualified Code(s): K50.011 - Crohn's disease of small intestine with rectal bleeding Code(s): K50.90 - Crohn's disease, unspecified, without complications Status: Acute Assessment and Plan: Per GI Possible underlying infection, stool studies pending, C diff negative (3) Symptomatic anemia: Code(s): D64.9 - Anemia, unspecified Status: Resolved Assessment and Plan: As above (4) Insomnia: Qualifiers: Insomnia type: adjustment Qualified Code(s): F51.02 - Adjustment insomnia Code(s): G47.00 - Insomnia, unspecified Status: Acute Assessment and Plan: Restoril as needed (5) Hypotension due to blood loss: Code(s): I95.89 - Other hypotension; R58 - Hemorrhage, not elsewhere classified Status: Resolved Assessment and Plan: Stable, monitor Blood pressure reviewed 11/19 Plan DVT prophylaxis with SCDs GI prophylaxis with PPI b.i.d. Code status full code DS: Summary Hospital Course Hospital Course: 47-year-old female with history of Crohn's disease presenting with GI bleed and possible Crohn's exacerbation, currently being transfused. no more bleeding (colonoscopy found old blood probably from small bowel) and ileitis gib scan negative h/h stable now she can go home but will need follow-up in office, plan is to start biologics Please see above and med rec for details. GI was consulted performed colonoscopy as above. Follow-up outpatient. Time Spent with Patient Time attestation: Total time spent providing and/or coordinating discharge services: DS: Data Data Completed and Pending Completed studies during hospitalization: Pending at discharge 11/19/22 12:10 Surgical [PTH] Routine Surgical [PTH] Routine Labs on day of discharge: Labs from last 24 hours 11/20/22 07:44 WBC 7.9 RBC 2.77 L Hgb 8.6 L Hct 26.6 L MCV 96.0 MCH 31.0 MCHC 32.3 RDW 16.9 H Plt Count 283 MPV 9.0 Immature Gran % (Auto) 1.9 H Neut % (Auto) 44.7 L Lymph % (Auto) 43.7 [place] % (Auto) 6.3 Eos % (Auto) 2.9 Baso % (Auto) 0.5 Lymph # (Auto) 3.46 H [place] # (Auto) 0.5 Eos # (Auto) 0.2 Baso # (Auto) 0.0 Abs Immat Gran (auto) 0.15 H Absolute Neuts (auto) 3.5 Absolute Nucleated RBC 0.0 Nucleated RBC % 0.0 Sodium 137 Potassium 3.8 Chloride 108 H Carbon Dioxide 28 Anion Gap 1 L BUN 4 L D Creatinine 0.70 Estim Creat Clear Calc 85 Estimated GFR > 60 Glucose 89 Calcium 8.1 L Discharge Plan Discharge Attending physician on discharge: Geri Plasencia Consulting providers: Aftab Soto; Cathy Velez; Hero Corbett V. Discharging Clinician: Geri Plasencia Patient Disposition: Home, Self-Care Activity: as tolerated Diet: as tolerated Patient Instructions: Gastrointestinal Bleeding (DC), Iron Rich Diet (DC) Stand Alone Forms: General Discharge Information Follow-up/Referrals: Michael Ramsey MD [Physician] - Nay Ogden FNP-C [Primary Care Provider] - Discharge Medications: Continued prednisone 10 mg tablet 20 mg PO DAILY Patient Comments: on 2 tabs daily week started 11/13/2022 Rx Instructions: take 4 tabs daily x 1 week take 3.5 tabs daily x 1 week take 3 tabs daily x 1 week take 2.5 tabs daily x 1 week take 2 tabs daily x 1 week take 1.5 tabs daily x 1 week take 1 tab
== END 2022-11-20 14:52 | disposition home or self-care (01) | DRG 386 ==
LOC: ANHED 19:37 → ANHIMU 20:06
PROVIDERS: Internal Medicine; Internal Medicine Gastroenterology; Admitting Provider Hospitalist; Emergency Provider Preventive Medicine Aerospace Medicine; PCP Clinical Nurse Specialist; Visit Provider Student in an Organized Health Care Education/Training Program
PROC: 0DJ08ZZ Inspection of Upper Intestinal Tract, Via Natural or Artificial Opening Endoscopic (ICD-10-PCS; CPT 43235; principal; 2022-11-19 12:00)
DX: K50.011 Crohn's disease of small intestine with rectal bleeding (principal); D62 Acute posthemorrhagic anemia; E87.1 Hypo-osmolality and hyponatremia; K56.699 Other intestinal obstruction unspecified as to partial versus complete obstruction; K29.00 Acute gastritis without bleeding; K52.9 Noninfective gastroenteritis and colitis, unspecified; I95.89 Other hypotension; F51.02 Adjustment insomnia
CPT/HCPCS: 36415; 36430; 74174; 74250; 78278; 80048; 80053; 81025; 85014; 85018; 85025; 85610; 85730; 86850; 86900; 86901; 86923; 87045; 87269; 87272; 87427; 87449; 87493; 88305; 96360; 96361; 96374; 99285; A9270; A9560; C9113; G0378; J2704; J7050; J7120; J7512; P9016; Q9967

== ENCOUNTER 2022-11-27 09:17 | Outpatient (CLI) | payer OTHER, SELFPAY ==
[2022-11-27 10:10] LABS: Basophils Absolute Auto 0.1 K/mm3 (0.0-0.1); Basophils Percent Auto 0.8 % (0.2-1.2); Eosinophils Absolute Auto 0.2 K/mm3 (0-0.3); Eosinophils Percent Auto 1.8 % (0-4.4); Hematocrit 30.4 % (37.0-47.0); Hemoglobin 9.4 g/dL (12.0-15.0); Immature Granulocyte Absolute 0.07 K/mm3 (0.00-0.031); Immature Granulocyte Percent A 0.8 % (0-0.5); Lymphocytes Absolute Auto 3.68 K/mm3 (0.9-3.2); Mean Corpuscular HGB Conc 30.9 g/dl (32-36); Mean Corpuscular Hemoglobin 30.2 pg (26-34); Mean Corpuscular Volume 97.7 fl (80-100); Mean Platelet Volume 9.3 fl (7.4-10.4); Monocytes Absolute Auto 0.6 K/mm3 (0.1-0.6); Monocytes Percent Auto 7.5 % (2.6-8.5); Neutrophils Absolute Auto 3.8 K/mm3 (1.3-6.7); Neutrophils Percent Auto 45.1 % (45.5-73.1); Platelet Count Result 600 k/mm3 (150-375); Red Blood Count 3.11 M/mm3 (4.2-5.4); Red Cell Distribution Width 15.1 % (11.5-14.5); White Blood Count 8.4 K/mm3 (4.5-10.0)
== END 2022-11-27 09:18 | disposition home or self-care (01) ==
LOC: ANHGOSHLAB 09:19
PROVIDERS: PCP Clinical Nurse Specialist; Visit Provider Clinical Nurse Specialist
DX: D64.9 Anemia, unspecified (principal)
CPT/HCPCS: 36415; 85025

== ENCOUNTER 2022-12-02 09:55 | Outpatient (CLI) | payer OTHER, SELFPAY ==
[2022-12-02 11:40] LABS: Basophils Absolute Auto 0.1 K/mm3 (0.0-0.1); Basophils Percent Auto 0.6 % (0.2-1.2); Eosinophils Absolute Auto 0.1 K/mm3 (0-0.3); Eosinophils Percent Auto 0.8 % (0-4.4); Hematocrit 30.9 % (37.0-47.0); Hemoglobin 9.7 g/dL (12.0-15.0); Immature Granulocyte Absolute 0.07 K/mm3 (0.00-0.031); Immature Granulocyte Percent A 0.7 % (0-0.5); Lymphocytes Absolute Auto 3.52 K/mm3 (0.9-3.2); Lymphocytes Percent Auto 36.1 % (18.3-44.2); Mean Corpuscular HGB Conc 31.4 g/dl (32-36); Mean Corpuscular Hemoglobin 30.1 pg (26-34); Mean Platelet Volume 9.4 fl (7.4-10.4); Monocytes Absolute Auto 0.9 K/mm3 (0.1-0.6); Monocytes Percent Auto 9.1 % (2.6-8.5); Neutrophils Absolute Auto 5.1 K/mm3 (1.3-6.7); Neutrophils Percent Auto 52.7 % (45.5-73.1); Platelet Count Result 553 k/mm3 (150-375); Red Blood Count 3.22 M/mm3 (4.2-5.4); Red Cell Distribution Width 14.7 % (11.5-14.5); White Blood Count 9.8 K/mm3 (4.5-10.0)
== END 2022-12-02 09:56 | disposition home or self-care (01) ==
LOC: ANHGOSHLAB 09:56
PROVIDERS: PCP Clinical Nurse Specialist; Visit Provider Clinical Nurse Specialist
DX: D64.9 Anemia, unspecified (principal)
CPT/HCPCS: 36415; 85025

== ENCOUNTER 2023-09-07 08:48 | Outpatient (CLI) | payer OTHER, SELFPAY ==
[2023-09-07 12:28] LABS: Basophils Absolute Auto 0.1 K/mm3 (0.0-0.1); Basophils Percent Auto 0.9 % (0.2-1.2); Eosinophils Absolute Auto 0.1 K/mm3 (0-0.3); Eosinophils Percent Auto 1.6 % (0-4.4); Hematocrit 38.5 % (37.0-47.0); Hemoglobin 12.8 g/dL (12.0-15.0); Immature Granulocyte Absolute 0.04 K/mm3 (0.00-0.031); Immature Granulocyte Percent A 0.6 % (0-0.5); Lymphocytes Absolute Auto 1.73 K/mm3 (0.9-3.2); Lymphocytes Percent Auto 25.3 % (18.3-44.2); Mean Corpuscular HGB Conc 33.2 g/dl (32-36); Mean Corpuscular Volume 99.2 fl (80-100); Mean Platelet Volume 10.2 fl (7.4-10.4); Monocytes Absolute Auto 0.6 K/mm3 (0.1-0.6); Monocytes Percent Auto 8.9 % (2.6-8.5); Neutrophils Absolute Auto 4.3 K/mm3 (1.3-6.7); Neutrophils Percent Auto 62.7 % (45.5-73.1); Platelet Count Result 260 k/mm3 (150-375); Red Blood Count 3.88 M/mm3 (4.2-5.4); Red Cell Distribution Width 12.6 % (11.5-14.5); White Blood Count 6.8 K/mm3 (4.5-10.0)
[2023-09-07 13:02] LABS: Alanine Aminotransferase 68 U/L (6-35); Albumin Level 4.6 g/dL (3.5-5.1); Alkaline Phosphatase 71 U/L (38-126); Anion Gap 10 mmol/L (4-12); Aspartate Amino Transferase 82 U/L (14-36); Bilirubin,Total 0.5 mg/dL (0.2-1.3); Blood Urea Nitrogen 6 mg/dL (7-17); Calcium 9.4 mg/dL (8.4-10.2); Carbon Dioxide 24 mmol/L (22-30); Chloride 103 mmol/L (98-107); Estimated Glomerular Filt Rate > 60; Glucose 75 mg/dL (65-110); Sodium 137 mmol/L (137-145)
[2023-09-07 13:07] LABS: Iron 101 ug/dL (37-170)
[2023-09-07 13:21] LABS: Vitamin D 25 Hydroxy 40.2 ng/mL
[2023-09-07 14:38] LABS: Folic Acid 15.3 ng/mL (2.76->20); Vitamin B12 > 1000.0 pg/mL (239-931)
[2023-09-07 16:01] LABS: Percent Iron Saturation 38 % (20-50)
== END 2023-09-07 08:49 | disposition home or self-care (01) ==
LOC: ANHGOSHLAB 08:49
PROVIDERS: PCP Clinical Nurse Specialist; Visit Provider Clinical Nurse Specialist
DX: D64.9 Anemia, unspecified (principal); F41.9 Anxiety disorder, unspecified; K50.90 Crohn's disease, unspecified, without complications; E55.9 Vitamin D deficiency, unspecified; R74.8 Abnormal levels of other serum enzymes; Z78.9 Other specified health status
CPT/HCPCS: 36415; 80053; 82306; 82607; 82728; 82746; 83540; 83550; 84443; 85025

== ENCOUNTER 2023-09-14 09:35 | Outpatient (CLI) | payer OTHER, SELFPAY ==
--- NOTE | ~2023-09-14 | US_ITS ---
Midline inferior to the sternum ULTRASOUND (Doppler ultrasound interrogation techniques used as neede d for this exam.) Ordering provider: LOUISE Damon History: . R22.9 - Localized swelling, mass and lump, unspecified . Comparison: None. FINDINGS impression: Hyperechoic area measuring 1 x 0.9 x 0.8 cm seen in the area of concern. No color flow is seen. This may be a lipoma. Follow-up advised. Reviewed, dictated and finalized at location A.
--- NOTE | ~2023-09-14 | US_ITS ---
Right upper quadrant ULTRASOUND Ordering provider: LOUISE Damon History: . R74.01 - Elevation of levels of liver transaminase levels . Comparison: None. FINDINGS: LIVER: Normal size measuring 15.7 cm.. Fat infiltration. No focal hepatic lesions or perihepatic flui d collections are identified. Normal flow of the portal vein. GALLBLADDER: Unremarkable. No evidence for stones, sludge, gallbladder wall thickening or pericholecy stic fluid collections. A negative sonographic Mendoza's sign was noted. BILIARY DUCTS: No evidence for intra or extrahepatic biliary dilation. Common bile duct measures 3 mm in diameter which is within normal limits. PANCREAS: Normal visualized portion. IMPRESSION: Fat infiltration of the liver otherwise, Unremarkable right upper quadrant ultrasound of the abdomen . Reviewed, dictated and finalized at location A. IMPRESSION: Fat infiltration of the liver otherwise, Unremarkable right upper quadrant ult rasound of the abdomen.
== END 2023-09-14 09:36 ==
LOC: GOSHIMG 09:36
PROVIDERS: PCP Clinical Nurse Specialist; Visit Provider Clinical Nurse Specialist
DX: R74.01 Elevation of levels of liver transaminase levels (principal); R22.9 Localized swelling, mass and lump, unspecified; K76.0 Fatty (change of) liver, not elsewhere classified
CPT/HCPCS: 76705

== ENCOUNTER 2023-10-15 10:32 | Outpatient (CLI) | payer OTHER, SELFPAY ==
--- NOTE | ~2023-10-15 | XR_ITS ---
Right ankle Technique: AP and lateral views were obtained. Clinical History: Pain Findings: No acute fracture or dislocation is seen. Osseous alignment is anatomic. Ankle mortise and other visualized joint spaces are preserved. Soft tissues are otherwise unremarkable. Impression: Unremarkable right ankle. Reviewed, dictated and finalized at location . Impression: Unremarkable right ankle.
== END 2023-10-15 10:33 | disposition home or self-care (01) ==
LOC: ANHIMG 10:32
PROVIDERS: PCP Clinical Nurse Specialist; Visit Provider Nurse Practitioner
DX: M25.571 Pain in right ankle and joints of right foot (principal)
CPT/HCPCS: 73600

== ENCOUNTER 2023-10-26 02:02 | Day surgery (SDC) | payer OTHER, SELFPAY ==
[2023-10-21 15:28] VITALS: BMI 23.6
--- NOTE | 2023-10-21 15:29 | PC.NURSE ---
Report to the Outpatient Waiting Room, entrance under the green pavilion located off [facility], at time _0930_ on date _[id number]_. Planned Procedure Time: _1130_. Time changes happen often and if your time is changed the preop area will call you the afternoon before. - You and your visitor will be asked to self-screen and do not enter if you have any COVID symptoms. - A mask is optional within the hospital at this time. Patients may have clear liquids (water, carbonated beverages, clear teas, apple juice) until 3 hours prior to surgery with a maximum of 20 ounces. - No food from midnight until time of surgery Take the following medications with a SIP of water the morning of surgery: ___Sertraline DO NOT STOP ANY OF YOUR OTHER PRESCRIPTION MEDICATIONS PRIOR TO SURGERY ?EXCEPT THE FOLLOWING Medications to discontinue per physician Patient says was told at Dr's office to stop all vitamins and supplements till after surgery. Date to take last dose Please no make-up, nail tamazight, hairspray, perfume, deodorant, or body powder the day of surgery. No jewelry (including any body piercings) or valuables the day of surgery, leave them at home. Please take a shower or bath the night before, or the morning of, surgery with an antibacterial soap. Wear comfortable, loose fitting clothing. - Jewelry must be removed prior to entering the operating room. Rings and piercings that are not removed may be cut off. - The hospital will not accept responsibility for valuables. - Please leave all valuables, including medications, at home the day of surgery. If you are going home after surgery, a licensed team cdl driver must drive you home. - NO public transportation without another adult if you receive anesthesia. - We recommend that an adult stay with you for 24 hours following discharge. - We also recommend that you do not drive, make important decision, drink alcoholic beverages, or take any drugs that were not prescribed by your health care provider for at least 24 hours after your discharge time. Follow any additional instructions given to you from your surgeon. If you or anyone in your household have experienced Covid symptoms in the past week, please notify your surgeon or the nurse liaison at the phone number below for possible testing. Telephone instructions given to __Molly__and asked if any additional questions and then verbalized understanding. Patient advised to call surgeon office or pre surgery nurse liaison [phone] if any additional questions.
[2023-10-26] VITALS (8 sets, daily range): BP systolic 108–126; BP diastolic 73–82; PULSE 65–117; RESP 11–16; TEMP 36.4–36.5; O2SAT 94–99
--- NOTE | 2023-10-26 09:41 | W.PM.PROC2 ---
Procedure Note - Detailed Date of Procedure 10/26/23 Pre-op Diagnosis breast ptosis, micromastia Post-op Diagnosis Same Procedure Performed 1. Bilateral breast mastopexy 2. Bilateral breast fat grafting Surgeon Crescencio Flores MD Anesthesia General Findings Inverted T Superior pedicle Fat grafting: Right breast: 300 cc Left breast: 300 cc Lipoaspirate: 1600 cc Description of Procedure She is here today for bilateral breast mastopexy. Previously and again today the risks, benefits, alternatives were discussed in extensive detail. I wanted her to be very realistic about the risks involved as well as expectations. We discussed aftercare and what to monitor for. Made sure answered all of her questions to her satisfaction today and consent was obtained. Marked in the preoperative holding area with their verification. The patient was taken to the operating room placed supine on the operating table. Anesthesia was provided by anesthesiology. A surgical time-out was taken. She was prepped and draped in a standard sterile fashion. Lipoaspirate Stab incisions were made and tumescent solution was infiltrated. Once adequate time was allowed for hemostasis a 3mm multihole fat grafting cannula was utilized to complete suction lipectomy based on S.A.F.E. technique in multiple planes and passes into a gravity separation device. Adipose tissue was allowed to gravity separate. Port sites closed with 3-0 Nylon. Mastopexy Eleven blade was utilized to make a stab incision and infiltrated with low volume tumescent solution. The breast was tailor tacked into place. I tailor tacked the breast into position. Placed her in a sitting position. Verified the nipple-areolar location based on preoperative planning as well as intraoperative observations and measurements in full agreement. She was placed supine. I de-epithelialized the pedicle. Breast was tailor tacked into place. Fat grafting Once adequate time for separation the central adipose tissue was placed into 50cc syringes after going through a 1.2 micron microfat kit. Suction tubing cut and an assisted utilized 50cc syringes for fat infiltration while I utilized the MicroAire system for infiltration of adipose tissue in multiple planes and passes verifying this was corrected placed in the tissue. Once complete I closed along the IMF with 2-0 Stratafix. Along the vertical with 2-0 PDS. I closed around the Lex with 3-0 strata fix. 3-0 Monocryl along the vertical. 3-0 Stratafix along the IMF. I finally closed everything with running subcuticular 4-0 Monocryl and tissue glue. Fluffs and surgical bra were placed. Estimated Blood Loss 75 Drains No Packing No Pathology None sent Complications No immediate complications Condition Stable Disposition PACU
[2023-10-26] MEDS: LACTATED RINGERS 1,000 ML 30 ML IV CONT ×3 (10:00→14:00)
--- NOTE | 2023-10-26 10:02 | WPDANESEPPF ---
Anes - Initial Pre Proc Eval Procedure: Operation Date: 10/26/23 11:30 Proposed Procedures p Bilateral Breast Mastopexy, - Crescencio Flores MD s Bilateral Breast Fat Grafting - Crescencio Flores MD Date/Time: 10/26/23 10:02 Surgeon: Crescencio Flores MD Pre Op Diagnosis: breast ptosis, micromastia Patient Data Age: 48 Gender: F Height: 1.73 m Weight: 70.5 kg Allergies Allergy/AdvReac Type Severity Reaction Status Date / Time morphine AdvReac Severe Itching Verified 10/21/23 15:22 Home Medications Medication Instructions Recorded Confirmed Type sertraline 100 mg tablet 100 mg PO DAILY #90 tabs 06/07/23 10/21/23 Rx sertraline 50 mg tablet 50 mg PO DAILY #90 tabs 06/07/23 10/21/23 Rx lorazepam 0.5 mg tablet 0.5 mg PO QHS PRN sleep #30 tabs 09/08/23 10/21/23 Rx ferrous sulfate 325 mg (65 mg 325 mg PO DAILY 10/21/23 10/21/23 History iron) tablet Laboratory Tests 10/26/23 09:39 Cotinine Pending Patient hx anesthesia problems: none Family hx anesthesia problems: none Results Review: All pre-operative results and documents have been reviewed as part of the pre-operative evaluation. [facility] Past Medical History Medical History Breast lump on right side at 11 o'clock position Crohn's disease History of gastrointestinal bleeding History of small bowel obstruction Ileitis, terminal Small bowel obstruction (10/20/22) Due to Crohn's Symptomatic anemia Vitamin D deficiency Surgical History Surgical History History of 2 sections 1993 and 2002 History of colonoscopy Family History Family History Father Hx of CABG, Onset Age: 60 Grandparent Lung cancer Grandparent Ovarian cancer Social History Social History Social History: She lives with her of 30 years. ( Recently departed) They had 2 children who are now adults. 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 She drinks a few alcoholic beverages on a weekly basis. She denies any history of tobacco use or illicit substance use. She is a vegan. Code status: Full code Surrogate decision maker: Smoking status: Never smoker Second hand tobacco smoke exposure: No Alcohol intake: current Drinks per week: 6 Alcohol use details: occasionally Substance use: never Do You Feel Safe in your Home?: Yes Lack of Transportation: No Lack of Food: Never True Current Housing: I Have Housing Concerned About Future Housing: No Difficulty Paying Gas/Electric Bills: No Difficulty Paying for Meds: No Currently Unemployed: No Education: Master's Degree or Higher Difficulty w/ Childcare or Family Care: No Living arrangements: with family 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s: No Anes - Eval Final PreProcedure Day of Procedure 10/26/23 10:02 Patient weight: normal Heart: regular rate and rhythm Lungs: clear to auscultation Airway: Mallampati scale class II Neurological: alert and oriented Last oral intake: >/= 8 hours ASA classification: II Emergent: no Anesthetic plan: proceed Anesthesia type and monitoring: general ETT and standard monitoring Results Review: All pre-operative results and documents have been reviewed as part of the pre-operative evaluation. Crohn's by history, (uncertain per pt). Active w cycling/spinning, no cp or sob. Informed Consent: The patient's anesthetic plan and its attendant risks and benefits were discussed with the patient/family/POA. Questions were
[2023-10-26 10:19] LABS: Urine Cotinine NEGATIVE
--- NOTE | 2023-10-26 10:34 | WPDHPUPDATE1 ---
History and Physical Update Update Date/Time: 10/26/23 10:34 History and Physical has been reviewed, including an updated exam of the patient. There are NO changes in the patient's condition. Risks, benefits, and alternatives have been discussed and questions answered. Patient agrees to proceed with procedure.
[2023-10-26] MEDS: SCOPOLAMINE 1 MG PATCH 1 PATCH TRANSDERM (10:35)
[2023-10-26] MEDS: ceFAZolin 2 GM/D5W 50 ML 2 GM/50 ML BAG IVPB (10:37)
[2023-10-26] MEDS: TRANEXAMIC ACID 1,000MG/ISO100 1,000 MG/100 ML BAG 200 MG IVPB (10:37)
[2023-10-26] MEDS: LACTATED RINGERS IRRIG 1,000 ML, LIDOCAINE HCL 1% LOCAL INJ 50 ML, EPINEPHrine HCL INJ ... INFILTRATE (11:08)
[2023-10-26] MEDS: HYDROmorphone HCL INJ (*CRX) 1 MG/ML SYR IV PUSH (14:16)
[2023-10-26] MEDS: fentaNYL CITRATE INJ (*CRX) 100 MCG/2 ML VIAL 25 MCG IV PUSH ×2 (14:30→14:36)
[2023-10-26] MEDS: oxyCODONE HCL (*CRX) 5 MG TAB IR PO (14:57)
== END 2023-10-26 15:45 | disposition home or self-care (01) ==
PROVIDERS: PCP Clinical Nurse Specialist; Visit Provider Surgery Plastic and Reconstructive Surgery
PROC: (CPT 19316; principal; 2023-10-26 11:30)
PROC: (CPT 15769; 2023-10-26 11:30)
DX: Z41.1 Encounter for cosmetic surgery (principal); N64.81 Ptosis of breast; N64.82 Hypoplasia of breast
CPT/HCPCS: 19316; 15771; 15772 ×11; 80307; A9270; J0171; J0330; J0690; J1100; J1170; J1580; J2250; J2371; J2405; J2704; J3010; J7120

== ENCOUNTER 2023-12-08 10:40 | Outpatient (CLI) | payer OTHER, SELFPAY ==
[2023-12-08 15:01] LABS: HIV 1/2 Ab P24 Ag Result Negative (Negative)
[2023-12-08 15:08] LABS: Hepatitis B Surface Antigen Negative (Negative)
[2023-12-08 15:14] LABS: HAV RESULT Negative (Negative); Hepatitis B Core IgM Result Negative (Negative)
[2023-12-08 15:25] LABS: Hepatitis C Virus Antibody Negative (Negative)
[2023-12-08 18:22] LABS: Rapid Plasma Reagin Non-Reactive (NonReactive)
== END 2023-12-08 10:41 | disposition home or self-care (01) ==
LOC: ANHGOSHLAB 10:41
PROVIDERS: PCP Clinical Nurse Specialist; Visit Provider Obstetrics & Gynecology
DX: Z20.2 Contact with and (suspected) exposure to infections with a predominantly sexual mode of transmission (principal)
CPT/HCPCS: 36415; 80074; 86592; 86695; 86696; 86703; G0432

== ENCOUNTER 2024-06-14 09:51 | Outpatient (CLI) | payer BC, SELFPAY ==
--- OUTSIDE RECORDS SUMMARY | 2024-06-14 10:51 | XMS_ITS | Clinical Summary ---
Author Organization [facility] Address [address] [address] Phone Care Team Providers Care Skull Chopper Name Role Phone Unknown, Notinfile Primary Care Provider Unavail able Allergies No known active allergies Medications metroNIDAZOLE (METROCREAM) 0.75 % cream APPLY TOPICALLY TO FACE TWICE DAILY 3 Active sertraline (ZOLOFT) 50 mg tablet 4 Active mupirocin (BACTROBAN) 2 % ointmentIndicat ions:Laceration of left lower extremity, initial encounter Apply topically 3 (three) times a day 22 g 4 Active Active Problems No known active problems Social History Tobacco Use Types Packs/Day Years Used Date Smoking Tobacco: Never Smokeless Tobacco: Never Comments Unknown Sex and Gender Information Value Date Recorded Sex Assigned at Not on file Legal Sex Female 3:20 PM CDT Gender Identity Not on file Sexual Orientation Not on file Obstetrics History Last Filed Vital Signs Vital Sign Reading Time Taken Comments Blood Pressure 90/60 09/12/2023 11:45 AM CDT Pulse 68 09/12/2023 11:45 AM CDT Temperature 37 C (98.6 F) 09/12/2023 11:45 AM CDT Respiratory Rate 20 09/12/2023 11:45 AM CDT Oxygen Saturation 99% 09/12/2023 11:45 AM CDT Inhaled Oxygen Concentration - - Weight 68 kg (150 lb) 09/12/2023 11:45 AM CDT Height 172.7 cm (5' 8 ) 09/12/2023 11:45 AM CDT Body Mass Index 22.81 09/12/2023 11:45 AM CDT Plan of Treatment Health Maintenance Due Date Last Done Comments Breast Cancer Screening-Mammogram 1974 Cervical Cancer Screening 1974 Colon Cancer Screening-Colonoscopy 1974 Depression Screening 1974 DTaP/Tdap/Td Vaccine (1 - Tdap) 1985 Regular Well Visit/Exam 18-64 1992 Covid-19 Vaccine (3 - 2023-2 5 season) 2023 12/26/2020, 11/27/2020 Influenza Vaccine (#1) 2023 Hepatitis B Screening Completed 10/02/2022 Hepatitis C Screening Completed 10/02/2022 Pneumococcal vaccine <65 Aged Out No longer eligible based on patient's age to complete this topic Procedures Procedure Name Priority Date/Time Associated Diagnosis Comments HEPATITIS C ANTIBODY Routine 10/02/2022 12:03 PM CDT Rheumatoid factor positive from Last 3 Months or Most Recently Relevant to Health Maintenance Results * Hepatitis C antibody (10/02/2022 12:03 PM CDT) Hep C Ab Nonreactive Nonreactive [facility] Comment:Antibodies to HCV no t detected. Does NOT exclude the possibility of recent exposure to HCV. Current interpretive data was last revised on 21 Blood 10/02/2022 12:0 3 PM CDT 10/02/2022 1:34 PM CDT Edita Shah NP LAB MICROBIOL OGY - GENERAL ORDERABLES Edited Result - Final [facility] Department [place] [address] from Last 3 Months or Most Recently Relevant to Health Maintenance Insurance [facility] [employer] Care Teams Skull Chopper Relationship Specialty Start Date End Date Unknown, Notinfile PCP - General 05/28/22
--- OUTSIDE RECORDS SUMMARY | 2024-06-14 10:51 | XMS_ITS | Referral Summary ---
Author Organization [facility] Address [address] [address] Phone Care Team Providers Care Fruit Grower Name Role Phone Unknown, Notinfile Primary Care [...] on file Sexual Orientation Not on file Last Filed Vital Signs Vital Sign Reading [...] 09/12/2023 11:45 AM CDT Plan of Treatment Not on file Procedures Procedure Name Priority Date/Time Associated Diagnosis Comments HEPATITIS C ANTIBODY Routine 10/02/2022 12:03 PM CDT Rheumatoid factor positive from Last 3 Months or Most Recently Relevant to Health Maintenance Results * Hepatitis C antibody (10/02/2022 12:03 PM CDT) Hep C Ab Nonreactive Nonreactive [facility] Comment:Antibodies to HCV no t detected. Does NOT exclude the possibility of recent exposure to HCV. Current interpretive data was last revised on 21 Blood 10/02/2022 12:0 3 PM CDT 10/02/2022 1:34 PM CDT us Edita Shah [employer]SEM[employer] LAB MICROBIOL OGY - GENERAL ORDERABLES Edited Result - Final Performing Organization Address City/State/[facility] Co de Phone Number [facility] Department [place] [address] from Last 3 Months or Most Recently Relevant to Health Maintenance Insurance [facility] [employer] PLUS [facility] [employer] [facility] [employer] Care Teams Fruit Grower Relationship Specialty Start Date End Date Unknown, Notinfile PCP - General 05/28/22
[2024-06-14 13:27] LABS: Alanine Aminotransferase 60 U/L (6-35); Albumin Level 4.3 g/dL (3.5-5.1); Alkaline Phosphatase 55 U/L (38-126); Anion Gap 10 mmol/L (4-12); Aspartate Amino Transferase 58 U/L (14-36); Bilirubin,Total 0.4 mg/dL (0.2-1.3); Blood Urea Nitrogen 4 mg/dL (7-17); CRP < 0.5 mg/dL (<1.0); Carbon Dioxide 26 mmol/L (22-30); Chloride 101 mmol/L (98-107); Estimated Glomerular Filt Rate > 60; Glucose 84 mg/dL (65-110); Potassium 4.2 mmol/L (3.4-5.0); Sodium 137 mmol/L (137-145)
[2024-06-14 13:29] LABS: Hematocrit 36.9 % (37.0-47.0); Hemoglobin 12.2 g/dL (12.0-15.0); Mean Corpuscular HGB Conc 33.1 g/dl (32-36); Mean Corpuscular Hemoglobin 33.1 pg (26-34); Mean Platelet Volume 10.4 fl (7.4-10.4); Platelet Count Result 275 k/mm3 (150-375); Red Blood Count 3.69 M/mm3 (4.2-5.4); White Blood Count 4.3 K/mm3 (4.5-10.0)
[2024-06-14 14:29] LABS: Hepatitis B Surface Antigen Negative (Negative)
[2024-06-14 14:49] LABS: Hepatitis B Surface Anti Res Positive
[2024-06-14 14:50] LABS: Erythrocyte Sedimentation Rate 19 mm/hr (0-20)
[2024-06-15 09:03] LABS: Hepatitis B Core Ab Total NON-REACTIVE (NON-REACTIVE)
[2024-06-17 14:24] LABS: NIL 0.02 IU/mL; Quantiferon TB Plus, 1T NEGATIVE (NEGATIVE)
== END 2024-06-14 09:52 | disposition home or self-care (01) ==
LOC: ANHGOSHLAB 09:53
PROVIDERS: PCP Clinical Nurse Specialist; Visit Provider Nurse Practitioner Family
DX: K50.90 Crohn's disease, unspecified, without complications (principal); K50.011 Crohn's disease of small intestine with rectal bleeding
CPT/HCPCS: 36415; 80053; 85027; 85652; 86140; 86480; 86704; 86706; 87340

== ENCOUNTER 2024-09-07 15:53 | Outpatient (CLI) | payer BC, SELFPAY ==
[2024-09-07 19:19] LABS: HIV 1/2 Ab P24 Ag Result Negative (Negative)
[2024-09-07 19:35] LABS: Trichomonas Vag PCR NOT DETECTED (NOT DETECTE)
[2024-09-07 19:35] LABS: Syphilis IgG/IgM Antibody Non-Reactive (Nonreactive)
[2024-09-07 19:39] LABS: Hepatitis B Surface Antigen Negative (Negative)
[2024-09-07 19:45] LABS: HAV RESULT Negative (Negative); Hepatitis B Core IgM Result Negative (Negative)
[2024-09-07 19:57] LABS: Hepatitis C Virus Antibody Negative (Negative)
[2024-09-07 20:00] LABS: Chlamydia trachomatis NOT DETECTED (NOT DETECTE); Neisseria gonorrhoeae PCR NOT DETECTED (NOT DETECTE)
== END 2024-09-07 15:54 | disposition home or self-care (01) ==
LOC: ANHGOSHLAB 15:54
PROVIDERS: PCP Clinical Nurse Specialist; Visit Provider Obstetrics & Gynecology
DX: Z11.3 Encounter for screening for infections with a predominantly sexual mode of transmission (principal)
CPT/HCPCS: 36415; 80074; 86593; 86703; 87491; 87591; 87661; G0432

== ENCOUNTER 2025-01-08 10:17 | Outpatient (CLI) | payer BC, SELFPAY ==
--- NOTE | ~2025-01-08 | MM_ITS ---
EXAMINATION: MM screening ian BI w felicia HISTORY: Screening TECHNIQUE: Craniocaudal and mediolateral oblique 3-D tomosynthesis images were obtained and synthetic 2-D images were generated. CAD analysis was submitted and interpreted. COMPARISON: No prior mammogram is available for comparison at this institution. BREAST PARENCHYMAL COMPOSITION: Not dense: There are scattered areas of fibroglandular density. FINDINGS: There is no evidence of suspicious mass, calcification, or architectural distortion to suggest malignancy in either breast. There has been no suspicious interval change. IMPRESSION: 1. No mammographic evidence of malignancy. 2. Recommend routine screening mammography in one year. BI-RADS Category 1: Negative Reviewed, dictated and finalized at location B.
== END 2025-01-08 10:18 | disposition home or self-care (01) ==
LOC: MICIMG 10:18
PROVIDERS: PCP Clinical Nurse Specialist; Visit Provider Obstetrics & Gynecology
DX: Z12.31 Encounter for screening mammogram for malignant neoplasm of breast (principal)
CPT/HCPCS: 77063; 77067